=== PATIENT | female | born 1995 | race African-American/Black ===

== ENCOUNTER 2017-04-29 10:22 | Inpatient (IN) | payer OTHER ==
[2017-04-29] MEDS ORDERED: Promethazine HCl 25 MG/ML VIAL ONE ×2 (11:00→15:22)
[2017-04-29] MEDS ORDERED: Morphine 4 MG/ML Carpuject ONE ×2 (11:00→15:21)
[2017-04-29 11:23] LABS: Bilirubin Negative (Negative); Blood, Urine Small (Negative); Clarity CLEAR (Clear); Glucose, Urine (Dipstick) >=1000 mg/dL (Negative); Leukocyte Negative (Negative); Nitrite Negative (Negative); Protein, Urine (Dipstick) 30 mg/dL (Neg-Trace); Specific Gravity, Urine 1.027 (1.002-1.036); Urobilinogen 0.2 mg/dL (0.2-1.0)
[2017-04-29 11:24] LABS: Pregnancy Test - Urine (BHCG) Negative (Negative); Pregu Control Background? CLEAR/WHITE (CLR/WHITE); Pregu Control Bar Appear? YES (CONTROL BAR); Specific Gravity 1.027 (1.002-1.036)
[2017-04-29 11:28] LABS: Bacteria/HPF None Seen HPF (None Seen); Hyaline Casts/LPF 0-3 HYALINE CAST LPF (0-3 Hyaline); Squamous Epithelial None Seen HPF (0-3); WBC/HPF None Seen HPF (0-3)
--- NOTE | 2017-04-29 11:34 | RAD ---
CHEST 1 VIEW: HISTORY: Dyspnea. COMPARISON: 09/08/16. FINDINGS: Cardiac silhouette and pulmonary vasculature are unremarkable. Mediastinum is midline. There is no confluent airspace consolidation or evidence of pneumothorax. IMPRESSION: No active cardiopulmonary abnormalities are demonstrated. POS: [facility]
[2017-04-29 12:42] LABS: #Basophils 0.1 thou/uL (0.0-0.2); #Lymphocytes 2.2 thou/uL (1.20-3.40); #Monocytes 0.5 thou/uL (0.11-0.59); #Neutrophils 3.2 thou/uL (1.40-6.50); %Eosinophils 0.6 % (0.0-10.0); %Lymphocytes 36.9 % (21.0-51.0); %Monocytes 7.5 % (0.0-10.0); Hemoglobin 11.6 g/dL (12.0-16.0); Mean Corpuscular HGB CONC 31.7 g/dL (32.0-36.0); Mean Corpuscular Hemoglobin 26.6 pg (27.0-31.0); Mean Corpuscular Volume 83.9 fl (81.0-99.0); Mean Platelet Volume 10.9 fL (7.4-10.4); Platelet Count 195 thou/uL (130-400); RBC Distribution Width 12.6 % (11.5-14.5); Red Blood Cell (RBC) Count 4.37 mill/uL (4.20-5.40); White Blood Cell (WBC) Count 5.9 thou/uL (4.8-10.8)
[2017-04-29 12:48] LABS: Base Excess-Venous -6.8 mmol/L (-30.0-30.0); Bicarbonate (HCO3v) 18.1 mmol/L (1.0-85.0); CO2 Tension (PvCO2) 33.4 mmHg (41.0-51.0); Calcium, Ionized 1.07 mmol/L (1.12-1.32); Hemoglobin - Calc 12.5 g/dL (12.0-18.0); O2 Tension (PvO2) 67.9 mmHg (35.0-45.0); T. Carbon Dioxide 19.1 mmol/L (1.0-85.0); pH (Venous) 7.342 (7.35-7.45); vO2 Saturation-calc 92.4 % (0.0-100.0)
[2017-04-29 13:02] LABS: ALT (SGPT) 26 U/L (8-55); AST (SGOT) 17 U/L (5-34); Albumin 3.3 g/dL (3.5-5.0); Alkaline Phosphatase 94 U/L (40-150); Anion Gap 22 mmol/L (10-20); BUN (Urea Nitrogen) 23 mg/dL (7.0-18.7); Bilirubin, Total 0.4 mg/dL (0.2-1.2); Calc. Creatinine Clearance 0 mL/min (70-130); Calcium 9.8 mg/dL (7.8-10.44); Carbon Dioxide 17 mmol/L (22-29); Chloride 95 mmol/L (98-107); Estimated GFR-MDRD 82; Globulin 3.6 g/dL (2.4-3.5); Lipase 100 U/L (8-78); Phosphorus 5.2 mg/dL (2.3-4.7); Potassium 5.2 mmol/L (3.5-5.1); Protein, Total 6.9 g/dL (6.0-8.3); Sodium 129 mmol/L (136-145)
[2017-04-29 13:09] LABS: Glucose 634 mg/dL (70-105)
[2017-04-29] MEDS ORDERED: Insulin Regular 100 units/100 ml in NS IVPB SCH (14:00)
[2017-04-29] MEDS ORDERED: Insulin Regular 300 UNITS/3 ML VIAL ONE (14:01)
[2017-04-29] MEDS ORDERED: Dextrose 5 %-0.45 % NaCl 1,000 ML IV PRN (15:08)
[2017-04-29] MEDS ORDERED: Ondansetron ODT 4 MG TAB PO PRN (15:08)
[2017-04-29] MEDS ORDERED: Sodium Chloride 0.9% 1,000 ML IV PRN ×4 (15:08)
[2017-04-29] MEDS ORDERED: NS 0.9% w/ 20 MEQ KCL 1,000 ML IV PRN ×2 (15:08)
[2017-04-29] MEDS ORDERED: CCU Electrolyte Replacement 1 EACH IVPB ONE (15:08)
[2017-04-29] MEDS ORDERED: Ondansetron HCl/PF 4 MG/2 ML Vial IVP PRN (15:08)
[2017-04-29] MEDS ORDERED: Potassium Chloride 40 MEQ in Premix Bag 1 BAG IVPB PRN (15:24)
[2017-04-29] MEDS ORDERED: CCU ELECTROLYTE REPLACEMENT PROTOCOL FS PRN (15:24)
[2017-04-29] MEDS ORDERED: Potassium Chloride 40 MEQ in Sodium Chloride 0.9% 250 ML 250 ML IVPB PRN (15:24)
[2017-04-29] MEDS ORDERED: Magnesium 2 GM/NS 0.9% 100 ML 2 GM in Premix Bag 1 BAG IVPB PRN (15:24)
[2017-04-29] MEDS ORDERED: Potassium Phosphate 15 MMOL in Sodium Chloride 0.9% 250 ML 250 ML IV PRN (15:24)
[2017-04-29] MEDS ORDERED: Potassium Chloride 20 MEQ TAB PO PRN (15:24)
[2017-04-29] MEDS ORDERED: Potassium Phosphate 9 MMOL in Sodium Chloride 0.9% 100 ML IVPB PRN (15:24)
[2017-04-29] MEDS ORDERED: Magnesium Oxide 400 MG TAB PO PRN ×2 (15:24)
[2017-04-29] MEDS ORDERED: Potassium Phosphate 12 MMOL in Sodium Chloride 0.9% 250 ML 250 ML IV PRN (15:24)
[2017-04-29 16:12] LABS: Anion Gap 19 mmol/L (10-20); BUN (Urea Nitrogen) 21 mg/dL (7.0-18.7); Calc. Creatinine Clearance 0 mL/min (70-130); Calcium 8.9 mg/dL (7.8-10.44); Carbon Dioxide 17 mmol/L (22-29); Chloride 104 mmol/L (98-107); Estimated GFR-MDRD Greater than 90; Glucose 334 mg/dL (70-105); Potassium 4.2 mmol/L (3.5-5.1); Sodium 136 mmol/L (136-145)
[2017-04-29 18:31] VITALS: BMI 29.2
[2017-04-29 19:41] LABS: Anion Gap 12 mmol/L (10-20); BUN (Urea Nitrogen) 19 mg/dL (7.0-18.7); Calc. Creatinine Clearance 123 mL/min (70-130); Calcium 8.5 mg/dL (7.8-10.44); Carbon Dioxide 24 mmol/L (22-29); Chloride 104 mmol/L (98-107); Estimated GFR-MDRD Greater than 90; Glucose 289 mg/dL (70-105); Potassium 4.2 mmol/L (3.5-5.1); Sodium 136 mmol/L (136-145)
--- NOTE | 2017-04-29 20:26 | HP ---
CHIEF COMPLAINT: Abdominal pain. HISTORY OF PRESENT ILLNESS: This is a 21-year-old female patient with type 1 diabetes who presented here with abdominal pain. Denies diarrhea. Denies any sick contacts. On clinical evaluation in the ER, the patient noted to have severely elevated blood sugar with obvious diabetic ketoacidosis as ev idenced by low bicarb and high anion gap. As a result of this, the decision has been taken to admit this patient. Patient noted with a blood sugar of 634 on presentation. PAST MEDICAL HISTORY: Significant for type 1 diabetes, asthma and diabetic neuropathy. ALLERGIES: No known drug allergies. MEDICATIONS: Reviewed as documented on [employer]. SOCIAL HISTORY: Denies alcohol, tobacco or illicit drug use. FAMILY HISTORY: Significant for atrial fibrillation in the mother, otherwise none significantly rela alverto to presenting illness. REVIEW OF SYSTEMS: As documented in the body of the history. The other systems were reviewed and we re found not to be significantly related to presenting illness. LABORATORY INVESTIGATION: Significant for sodium of 129, potassium 5.2, bicarbonate of 17 with an an ion gap of 22, blood sugar 634. Urine showed presence of sugar protein and ketones. CBC unremarkabl e. PHYSICAL EXAMINATION: GENERAL: The patient is noted to be clinically dehydrated, otherwise hemodynamically stable. VITAL SIGNS: Somewhat tachycardic with a respiratory rate of 18. HEENT: Unremarkable with moist oral mucosa. CARDIOVASCULAR SYSTEM: First and second heart sounds were heard, tachycardic. RESPIRATORY SYSTEM: Clear to auscultation bilaterally. DIGESTIVE SYSTEM: Revealed a benign abdomen with positive bowel sounds. EXTREMITIES: No peripheral edema. SKIN: No new gross rash. LYMPHATICS: No peripheral lymphadenopathy. IMPRESSION: 1. Severe hyperglycemia in the context of problem #2. 2. Diabetic ketoacidosis. 3. Type 1 diabetes mellitus. 4. Asthma. PLAN: 1. The patient has been admitted to [facility]. 2. Insulin drip per diabetic ketoacidosis protocol. 3. Rehydration per protocol. 4. Counseling on the need to stay compliant with medications. 5. Further management will be dependent on the clinical course.
[2017-04-29] MEDS: Promethazine HCl 25 MG/ML VIAL SLOW IVP PRN (20:51)
[2017-04-29] MEDS ORDERED: Promethazine 25 MG TAB PO PRN (22:07)
[2017-04-29] MEDS: Morphine 2 MG/ML SYRINGE SLOW IVP PRN (22:24)
[2017-04-29] MEDS: D5 1/2 NS w/20 mEq KCL 1,000 ML IV PRN (22:30)
[2017-04-29 23:41] LABS: Anion Gap 14 mmol/L (10-20); BUN (Urea Nitrogen) 17 mg/dL (7.0-18.7); Calc. Creatinine Clearance 152 mL/min (70-130); Calcium 8.4 mg/dL (7.8-10.44); Carbon Dioxide 19 mmol/L (22-29); Chloride 110 mmol/L (98-107); Estimated GFR-MDRD Greater than 90; Glucose 131 mg/dL (70-105); Magnesium 1.8 mg/dL (1.6-2.6); Phosphorus 3.4 mg/dL (2.3-4.7); Potassium 4.2 mmol/L (3.5-5.1); Sodium 139 mmol/L (136-145)
[2017-04-30] MEDS: D5 1/2 NS w/20 mEq KCL 1,000 ML IV PRN ×2 (03:09→07:13)
[2017-04-30 04:44] LABS: Anion Gap 12 mmol/L (10-20); BUN (Urea Nitrogen) 14 mg/dL (7.0-18.7); Calc. Creatinine Clearance 156 mL/min (70-130); Calcium 7.8 mg/dL (7.8-10.44); Carbon Dioxide 20 mmol/L (22-29); Chloride 108 mmol/L (98-107); Estimated GFR-MDRD Greater than 90; Glucose 221 mg/dL (70-105); Lipase 116 U/L (8-78); Potassium 4.1 mmol/L (3.5-5.1); Sodium 136 mmol/L (136-145)
[2017-04-30] MEDS: Pregabalin 75 MG CAP PO SCH ×2 (08:23→20:18)
[2017-04-30] MEDS: Morphine 2 MG/ML SYRINGE SLOW IVP PRN ×2 (08:24→21:08)
[2017-04-30] MEDS: Promethazine HCl 25 MG/ML VIAL SLOW IVP PRN (10:17)
[2017-04-30] MEDS ORDERED: Insulin Regular 300 UNITS/3 ML VIAL SC PRN ×3 (11:59→15:09)
[2017-04-30] MEDS ORDERED: Dextrose 50% Abboject 50 ML SYRINGE SLOW IVP PRN (11:59)
[2017-04-30] MEDS ORDERED: Dextrose 5% in Water 1,000 ML IV PRN (11:59)
[2017-04-30] MEDS ORDERED: Senokot 8.6 MG TAB PO PRN (12:06)
[2017-04-30] MEDS ORDERED: Ondansetron HCl/PF 4 MG/2 ML Vial IVP PRN (12:06)
[2017-04-30] MEDS ORDERED: Calcium Carbonate 500 MG ChewTAB PO PRN (12:06)
[2017-04-30] MEDS ORDERED: INSULIN DETEMIR SC SCH (12:15)
[2017-04-30] MEDS ORDERED: Sodium Chloride 0.9% 1,000 ML IV SCH (12:15)
[2017-04-30] MEDS ORDERED: ADMIXTURE FEE SC SCH (12:15)
[2017-04-30] MEDS: Acetaminophen 325 MG TAB PO PRN (13:18)
[2017-04-30] MEDS ORDERED: cloNIDine 0.1 MG TAB PO PRN (15:09)
[2017-04-30] MEDS ORDERED: Morphine 2 MG/ML SYRINGE SLOW IVP PRN (15:47)
[2017-04-30] MEDS: Promethazine 25 MG TAB PO PRN (15:48)
[2017-04-30] MEDS ORDERED: Insulin Regular 300 UNITS/3 ML VIAL SC SCH (16:30)
[2017-04-30] MEDS ORDERED: Cyclobenzaprine 10 MG TAB PO PRN (16:39)
--- NOTE | 2017-04-30 17:38 | PDOC.PN ---
- Subjective Encounter Start Date: 04/30/17 Encounter Start Time: 11:00 Patient seen and examined. No new complaints. No overnight events. Nausea improving. - Objective MAR Reviewed: Yes Vital Signs & Weight: Vital Signs (12 hours) Temp Pulse Resp BP BP Pulse Ox 04/30/17 16:41 112 H 171/110 H 04/30/17 15:48 186/113 H 04/30/17 15:00 97.6 F 110 H 16 96 04/30/17 11:06 97.6 F 98 16 128/84 99 04/30/17 08:09 97.5 F L 90 17 95 04/30/17 07:00 97.5 F L 90 17 119/73 97 Weight Weight 176 lb I&O: 04/29/17 04/30/17 05/01/17 06:59 06:59 06:59 Intake Total 3410 252 Output Total 650 Balance 2760 252 Result Diagrams: 04/29/17 12:30 04/30/17 03:31 Additional Labs: Accuchecks 04/30/17 04/30/17 04/30/17 16:35 14:43 11:05 POC Glucose 469 H 436 H 123 H 04/30/17 04/30/17 04/30/17 10:14 09:04 08:02 POC Glucose 96 101 116 H 04/30/17 04/30/17 04/30/17 07:13 05:59 04:55 POC Glucose 114 H 142 H 200 H 04/30/17 04/30/17 04/30/17 04:10 03:06 02:12 POC Glucose 218 H 241 H 304 H 04/30/17 04/30/17 04/29/17 01:12 00:15 23:00 POC Glucose 300 H 228 H 138 H 04/29/17 04/29/17 04/29/17 22:05 20:59 20:13 POC Glucose 96 148 H 203 H 04/29/17 04/29/17 19:04 18:14 POC Glucose 294 H 355 H EKG Reviewed by me: Yes (Tele SR) Phys Exam - Physical Examination Constitutional: NAD HEENT: moist MMs Neck: no JVD Respiratory: no wheezing, no rales, no rhonchi, clear to auscultation bilateral Cardiovascular: RRR, no rub no heaves/pulsations Gastrointestinal: soft, non-tender, no distention, positive bowel sounds Musculoskeletal: no edema Neurological: non-focal, normal sensation, moves all 4 limbs Psychiatric: normal affect, A&O x 3 Dx/Plan - Plan DVT proph w/lovenox, DVT proph w/SCDs IMPRESSION: 1. DKA - cause ??? No infectious etio identified 2. HTN 3. Mild Int Asthma 4. Hyponatremia/Hyperkalemia/Met acidosis - resolved 5. Diabetic neuropathy/ DM1 PLAN: * Change Insulin drip to Aggressive sliding scale with Levemir 30 units BID * Levemir 20 units x 1 * ACHS and 0200 sugar check * Cont gentle IVF * Transfer to Medical * DC Electrolyte protocol * AM labs * Conselled on DM1 * Elevated Lipase prob due to DKA * Add Amlodipine Laboratory Tests 04/30/17 04/30/17 03:31 03:31 Lipase 116 H B-Hydroxybutyrate 0.07 Review of Systems - Review of Systems Respiratory: negative: Cough, Dry, Shortness of Breath, Hemoptysis, SOB with Excertion, Pleuritic Pain, Sputum, Wheezing Cardiovascular: negative: chest pain, palpitations, orthopnea, paroxysmal nocturnal dyspnea, edema, light headedness - Medications/Allergies Allergies/Adverse Reactions: Allergies Allergy/AdvReac Type Severity Reaction Status Date / Time lisinopril Allergy Severe Swollen Verified 09/09/16 03:48 Lips metoclopramide [From Reglan] Allergy Severe Short of Verified 09/09/16 03:48 Breath ketorolac [From Toradol] Allergy Verified 04/29/17 18:29 Medications: Current Medications Acetaminophen (Tylenol) 650 mg PO Q4H PRN PRN Reason: Headache/Fever or Pain Last Admin: 04/30/17 13:18 Dose: 650 mg Calcium Carbonate (Tums) 1,000 mg PO Q4H PRN PRN Reason: Heartburn or Indigestion Clonidine (Catapres) 0.1 mg PO Q4H PRN PRN Reason: Systolic BP > 180 Last Admin: 04/30/17 15:48 Dose: 0.1 mg Cyclobenzaprine HCl (Flexeril) 5 mg PO TID PRN PRN Reason: Muscle Spasm Stop: 05/02/17 16:40 Dextrose/Water (Dextrose 50%) 25 gm SLOW IVP PRN PRN PRN Reason: Hypoglycemia Glucagon (Glucagon) 1 mg IM PRN PRN PRN Reason: Hypoglycemia Dextrose/Water (D5w) 1,000 mls @ 0 mls/hr IV .Q0M PRN; As Directed PRN Reason: Hypoglycemia Insulin Detemir 30 units/ (Miscellaneous Medication) 0.3 mls @ 0 mls/hr SC BID [facility] Insulin Human Regular (Humulin R) 5 units SC 0730 [facility] Insulin Human Regular (Humulin R) 5 units SC 1130 [facility] Insulin Human Regular (Humulin R) 5 units SC 1630 [facility] Last Admin: 04/30/17 15:50 Dose: 5 unit Insulin Human Regular (Humulin R) 0 units SC .BEDTIME SLIDING SC PRN PRN Reason: Bedtime Correctional Scale Insulin Human Regular (Humulin R) 0 units SC .AGGRESSIVE SLIDING PRN PRN Reason: Aggressive Sliding Scale Last Admin: 04/30/17 15:50 Dose: 13 unit Morphine Sulfate (Morphine) 2 mg SLOW IVP Q8H PRN PRN Reason: Severe Pain (7-10) Stop: 05/01/17 15:25 Last Admin: 04/30/17 15:52 Dose: 2 mg Ondansetron HCl (Zofran) 4 mg IVP Q6H PRN PRN Reason: Nausea/Vomiting Pantoprazole Sodium (Protonix) 40 mg PO DAILY [facility] Last Admin: 04/30/17 08:24 Dose: 40 mg Pregabalin (Lyrica) 300 mg PO BID [facility] Last Admin: 04/30/17 08:23 Dose: 300 mg Promethazine HCl (Phenergan) 25 mg PO Q4H PRN PRN Reason: Nausea Last Admin: 04/30/17 15:48 Dose: 25 mg Senna (Senokot) 2 tab PO HSPRN PRN PRN Reason: Constipation
[2017-04-30] MEDS: ADMIXTURE FEE SC SCH (20:20)
[2017-04-30] MEDS: INSULIN DETEMIR SC SCH (20:20)
[2017-04-30 23:56] LABS: Troponin I Less than 0.010 ng/mL (< 0.028)
[2017-05-01] MEDS: Morphine 2 MG/ML SYRINGE SLOW IVP PRN ×3 (02:02→13:22)
[2017-05-01 02:41] LABS: Anion Gap 13 mmol/L (10-20); BUN (Urea Nitrogen) 13 mg/dL (7.0-18.7); Calc. Creatinine Clearance 173 mL/min (70-130); Calcium 8.1 mg/dL (7.8-10.44); Carbon Dioxide 22 mmol/L (22-29); Chloride 108 mmol/L (98-107); Estimated GFR-MDRD Greater than 90; Glucose 89 mg/dL (70-105); Phosphorus 3.6 mg/dL (2.3-4.7); Potassium 3.8 mmol/L (3.5-5.1); Sodium 139 mmol/L (136-145)
[2017-05-01 03:39] LABS: Troponin I Less than 0.010 ng/mL (< 0.028)
[2017-05-01] MEDS ORDERED: Insulin Regular 300 UNITS/3 ML VIAL SC SCH ×2 (07:30→11:30)
[2017-05-01] MEDS: INSULIN DETEMIR SC SCH (08:53)
[2017-05-01] MEDS: ADMIXTURE FEE SC SCH (08:53)
[2017-05-01] MEDS: Promethazine 25 MG TAB PO PRN ×2 (08:57→13:24)
[2017-05-01] MEDS ORDERED: Sodium Chloride 0.9% 10 ML ONE (09:04)
[2017-05-01] MEDS: Pregabalin 75 MG CAP PO SCH (10:05)
[2017-05-01 12:26] VITALS: TEMP 98
[2017-05-01] MEDS ORDERED: cloNIDine 0.1 MG TAB PO SCH (12:30)
[2017-05-01] MEDS: Acetaminophen 325 MG TAB PO PRN (13:24)
[2017-05-01 16:04] VITALS: BP 143/86
--- NOTE | 2017-05-01 17:20 | DIS ---
DATE OF DISCHARGE: 05/01/2017 DISCHARGE DISPOSITION: Home. FOLLOWUP: Follow up with primary care physician, Dr. Martin in 1 week. The patient was seen and examined on the day of discharge. Denies any new complaints. No chest pain , shortness of breath or palpitations reported. Blood sugars today was 156, 169, and 167. ALLERGIES: Patient is allergic to LISINOPRIL, REGLAN, and TORADOL. DISCHARGE MEDICATIONS: Same as admission medications with the addition of clonidine as needed for sy stolic blood pressure more than 180. She was advised to continue Levemir 30 units b.i.d. with 15 uni ts of Humalog 3 times a day, Protonix 40 mg daily, Lyrica 300 mg b.i.d., Phenergan as needed. INPATIENT CONSULTANTS: None. BRIEF HOSPITAL COURSE: The patient is a 21-year-old female with diabetes mellitus type 1, presented to the hospital with abdominal pain. Blood sugar was 634 on ER presentation. Please refer to the hi story and physical dated 04/29/[address] Sena for further details. The patient was admitted to the intermediate care unit with a diagnosis of diabetic ketoacidosis. He r anion gap on admission was 22 with ketones of 6.17, sodium of 129, and potassium 5.2. Her bicarbon ate on admission was 17. She was placed on insulin drip diabetic ketoacidosis protocol. Next day, i nsulin drip was transitioned to subcutaneous insulin with aggressive sliding scale. Electrolytes hav e completely resolved. Her blood sugars have been stable over the last 12 hours. Exact precipitant factor for DKA appears to be unclear. Probable medication noncompliance. She also was found to have elevated blood pressure intermittently, probably anxiety induced. Blood pressure this morning was 1 24/79 and 121/79 last night. For this reason, she was not started on antihypertensives. A prescript ion for clonidine was provided for systolic blood pressure more than 180. She was extensively counse led on diabetes mellitus type 1 as well as hypertension. She is able to tolerate oral diet. She mariah ears stable for discharge. FINAL DIAGNOSES: 1. Diabetic ketoacidosis, resolved. 2. History of diabetes mellitus type 1. 3. Hypertension, diet controlled. 4. Mild intermittent asthma. 5. Hyponatremia. 6. Hyperkalemia. 7. Metabolic acidosis. 8. Diabetic neuropathy. Plan of care was discussed with the patient in detail. She stated understanding. Total time coordinating the discharge of this patient was 37 minutes.
--- NOTE | 2017-05-01 23:42 | EKG ---
Test Reason : Blood Pressure : / mmHG Vent. Rate : 099 BPM Atrial Rate : 099 BPM P-R Int : 118 ms QRS Dur : 072 ms QT Int : 348 ms P-R-T Axes : 052 058 028 degrees QTc Int : 446 ms Normal sinus rhythm Normal ECG When compared with ECG of 29-APR-2017 10:37, (Unconfirmed) No significant change was found Confirmed by Domingo ROSARIO ([id number]) on 05/01/2017 11:41:46 PM Referred By: NHUNG Confirmed By:Domingo ROSARIO
--- NOTE | 2017-05-05 18:41 | EKG ---
Test Reason : Blood Pressure : / mmHG Vent. Rate : 115 BPM Atrial Rate : 115 BPM P-R Int : 132 ms QRS Dur : 078 ms QT Int : 334 ms P-R-T Axes : 070 048 042 degrees QTc Int : 462 ms Sinus tachycardia Possible Left atrial enlargement Borderline ECG Confirmed by HAWA ARELLANO MD ([id number]), industrial editor WALTER COPELAND ([id number] on 05/05/2017 6:40:30 PM Referred By: Confirmed By:HAWA ARELLANO MD
== END 2017-05-01 16:46 | disposition home or self-care (01) | DRG 638 ==
LOC: ERS 10:22 → IMCU/EMU 15:37 → ONC 04-30 14:12
PROVIDERS: ADMIT Internal Medicine Nephrology; ATTEND Internal Medicine Nephrology
DX: E10.10 Type 1 diabetes mellitus with ketoacidosis without coma (principal); E87.1 Hypo-osmolality and hyponatremia; E10.42 Type 1 diabetes mellitus with diabetic polyneuropathy; E87.5 Hyperkalemia; E86.0 Dehydration; Z88.8 Allergy status to other drugs, medicaments and biological substances; Z79.4 Long term (current) use of insulin; I10 Essential (primary) hypertension; J45.20 Mild intermittent asthma, uncomplicated
CPT/HCPCS: 36415; 36416; 71045; 80048; 80053; 81003; 81015; 81025; 82010; 82330; 82803; 83690; 83735; 84100; 84484; 85025; 93005; 93010; 96361; 96365; 96366; 96375; 96376; A4216; J1815; J2270; J2550; J7050

== ENCOUNTER 2017-07-13 19:49 | Emergency (ER) | payer OTHER ==
[2017-07-13 20:27] LABS: #Basophils 0.1 thou/uL (0.0-0.2); #Eosinphils 0.2 thou/uL (0.0-0.7); #Lymphocytes 2.1 thou/uL (1.20-3.40); #Monocytes 0.5 thou/uL (0.11-0.59); #Neutrophils 2.3 thou/uL (1.40-6.50); %Basophils 1.1 % (0.0-1.0); %Eosinophils 3.6 % (0.0-10.0); %Lymphocytes 41.5 % (21.0-51.0); %Monocytes 9.3 % (0.0-10.0); %Neutrophils 44.6 % (42.0-75.0); Hemoglobin 11.9 g/dL (12.0-16.0); Mean Corpuscular HGB CONC 33.7 g/dL (32.0-36.0); Mean Corpuscular Hemoglobin 27.9 pg (27.0-31.0); Mean Corpuscular Volume 82.9 fl (81.0-99.0); Mean Platelet Volume 10.4 fL (7.4-10.4); Platelet Count 168 thou/uL (130-400); RBC Distribution Width 13.2 % (11.5-14.5); Red Blood Cell (RBC) Count 4.26 mill/uL (4.20-5.40); White Blood Cell (WBC) Count 5.2 thou/uL (4.8-10.8)
[2017-07-13 20:49] LABS: ALT (SGPT) 24 U/L (8-55); AST (SGOT) 15 U/L (5-34); Albumin 3.1 g/dL (3.5-5.0); Alkaline Phosphatase 109 U/L (40-150); Anion Gap 14 mmol/L (10-20); BUN (Urea Nitrogen) 19 mg/dL (7.0-18.7); Bilirubin, Total 0.2 mg/dL (0.2-1.2); Calc. Creatinine Clearance 0 mL/min (70-130); Calcium 8.6 mg/dL (7.8-10.44); Carbon Dioxide 23 mmol/L (22-29); Chloride 101 mmol/L (98-107); Estimated GFR-MDRD 76; Globulin 3.5 g/dL (2.4-3.5); Glucose 399 mg/dL (70-105); Potassium 4.9 mmol/L (3.5-5.1); Protein, Total 6.6 g/dL (6.0-8.3); Sodium 133 mmol/L (136-145)
[2017-07-13 21:06] LABS: BHCG - Serum Negative (NEGATIVE); Pregs Control Background? CLEAR/WHITE (CLR/WHITE); Pregs Control Bar Appear? YES (CONTROL BAR)
--- NOTE | 2017-07-13 21:09 | RAD ---
PORTABLE AP CHEST X-RAY 07/13/17 HISTORY: Chest pain, swelling. COMPARISON: 04/29/17. FINDINGS: The cardiac silhouette and pulmonary vasculature are within normal limits. The lungs remain clear. Th ere has been no interval change from prior study. IMPRESSION: No acute cardiopulmonary process. POS: [facility]
[2017-07-13] MEDS ORDERED: Ondansetron ODT 8 MG TAB ONE (21:14)
[2017-07-13 21:19] LABS: CKMB 2.3 ng/mL (0-6.6); Troponin I Less than 0.010 ng/mL (< 0.028)
[2017-07-13] MEDS ORDERED: Furosemide 40 MG/4 ML VIAL ONE (22:16)
[2017-07-13] MEDS ORDERED: Promethazine HCl 25 MG/ML VIAL ONE (22:16)
[2017-07-13] MEDS ORDERED: Morphine 4 MG/ML VIAL ONE (22:16)
== END 2017-07-13 23:48 | disposition home or self-care (01) ==
LOC: ERS 19:49
DX: R60.0 Localized edema (principal); E10.40 Type 1 diabetes mellitus with diabetic neuropathy, unspecified; I10 Essential (primary) hypertension; J45.909 Unspecified asthma, uncomplicated
CPT/HCPCS: 36415; 36416; 71045; 80053; 82010; 82553; 83880; 84484; 84703; 85025; 93005; 94760; 96372; 96374; 96375; J1940; J2270; J2550

== ENCOUNTER 2017-12-05 18:28 | Emergency (ER) | payer OTHER ==
[2017-12-05 19:27] LABS: #Basophils 0.1 thou/uL (0.0-0.2); #Eosinphils 0.1 thou/uL (0.0-0.7); #Lymphocytes 2.4 thou/uL (1.20-3.40); #Monocytes 0.8 thou/uL (0.11-0.59); #Neutrophils 6.7 thou/uL (1.40-6.50); %Basophils 0.6 % (0.0-1.0); %Eosinophils 1.1 % (0.0-10.0); %Lymphocytes 23.9 % (21.0-51.0); %Monocytes 8.1 % (0.0-10.0); %Neutrophils 66.3 % (42.0-75.0); Hemoglobin 8.3 g/dL (12.0-16.0); Mean Corpuscular HGB CONC 33.4 g/dL (32.0-36.0); Mean Corpuscular Hemoglobin 27.8 pg (27.0-31.0); Mean Corpuscular Volume 83.3 fL (78.0-98.0); Mean Platelet Volume 9.6 fL (7.4-10.4); Platelet Count 286 thou/uL (130-400); Red Blood Cell (RBC) Count 2.98 mill/uL (4.20-5.40); White Blood Cell (WBC) Count 10.1 thou/uL (4.8-10.8)
[2017-12-05 19:49] LABS: ALT (SGPT) 12 U/L (8-55); AST (SGOT) 20 U/L (5-34); Albumin 2.9 g/dL (3.5-5.0); Alkaline Phosphatase 142 U/L (40-150); Anion Gap 16 mmol/L (10-20); BUN (Urea Nitrogen) 18 mg/dL (7.0-18.7); Bilirubin, Total 0.4 mg/dL (0.2-1.2); Calc. Creatinine Clearance 0 mL/min (70-130); Calcium 8.4 mg/dL (7.8-10.44); Carbon Dioxide 27 mmol/L (22-29); Chloride 96 mmol/L (98-107); Estimated GFR-MDRD 29; Globulin 4.2 g/dL (2.4-3.5); Glucose 301 mg/dL (70-105); Lipase 54 U/L (8-78); Potassium 3.9 mmol/L (3.5-5.1); Protein, Total 7.1 g/dL (6.0-8.3); Sodium 135 mmol/L (136-145)
[2017-12-05 19:55] LABS: BHCG - Serum Negative (NEGATIVE); Pregs Control Background? CLEAR/WHITE (CLR/WHITE); Pregs Control Bar Appear? YES (CONTROL BAR)
[2017-12-05] MEDS ORDERED: Morphine 4 MG/ML VIAL ONE (22:15)
[2017-12-05] MEDS ORDERED: Ondansetron HCl/PF 4 MG/2 ML Vial ONE (22:16)
--- NOTE | 2017-12-05 22:50 | CT ---
CT ABDOMEN AND PELVIS WITH IV CONTRAST 12/05/17 HISTORY: Left flank pain. FINDINGS: Lung bases are clear. Surrounding left kidney has a very large heterogeneous well encapsulated shell having the appearance of a perinephric hematoma. It measures up to 15.2 cm in length x 5.0 cm depth. There is effacement of the lateral renal cortex. A thin linear metallic density is present within the inferior pole cortex of the left kidney, likely related to recent biopsy. Urinary bladder is unremarkable. IMPRESSION: Large left subcapsular renal hematoma. POS: [facility]
[2017-12-05] MEDS ORDERED: Promethazine HCl 25 MG/ML VIAL ONE (23:26)
[2017-12-05] MEDS ORDERED: HYDROmorphone 0.5 MG/0.5 ML SYRINGE ONE (23:55)
[2017-12-06] MEDS ORDERED: Insulin Regular 300 UNITS/3 ML VIAL ONE (01:59)
== END 2017-12-06 02:18 | disposition home or self-care (01) ==
LOC: ERS 18:28
DX: M79.81 Nontraumatic hematoma of soft tissue (principal); R11.2 Nausea with vomiting, unspecified; E10.40 Type 1 diabetes mellitus with diabetic neuropathy, unspecified; J45.909 Unspecified asthma, uncomplicated; Z79.899 Other long term (current) drug therapy
CPT/HCPCS: 36415; 36416; 74177; 80053; 83690; 84703; 85025; 94760; 96365; 96366; 96375; J1170; J1815; J2270; J2405; J2550

== ENCOUNTER 2018-12-08 01:17 | Emergency (ER) | payer OTHER ==
[2018-12-08] MEDS ORDERED: Acetaminophen 325 MG TAB ONE ×2 (03:24→03:26)
[2018-12-08 03:27] LABS: Mean Corpuscular Volume 88.9 fL (78.0-98.0)
[2018-12-08 03:28] LABS: Hemoglobin 9.5 g/dL (12.0-16.0); Mean Corpuscular HGB CONC 33.6 g/dL (32.0-36.0); Mean Corpuscular Hemoglobin 29.9 pg (27.0-31.0); RBC Distribution Width 14.5 % (11.5-14.5); Red Blood Cell (RBC) Count 3.18 mill/uL (4.20-5.40); White Blood Cell (WBC) Count 6.1 thou/uL (4.8-10.8)
[2018-12-08 03:42] LABS: #Eosinphils 0.2 thou/uL (0.0-0.7); #Lymphocytes 1.7 thou/uL (1.20-3.40); #Monocytes 0.7 thou/uL (0.11-0.59); #Neutrophils 3.6 thou/uL (1.40-6.50); %Basophils 0.8 % (0.0-1.0); %Eosinophils 2.7 % (0.0-10.0); %Lymphocytes 27.6 % (21.0-51.0); %Monocytes 10.9 % (0.0-10.0); %Neutrophils 58.1 % (42.0-75.0); Large Platelets SLIGHT; MDiff Complete? YES; Mean Platelet Volume 13.7 fL (7.4-10.4); Platelet Count 112 thou/uL (130-400); Platelet Morphology Comment Appears Adequate
[2018-12-08 03:46] LABS: ALT (SGPT) 28 U/L (8-55); AST (SGOT) 25 U/L (5-34); Albumin 3.4 g/dL (3.5-5.0); Alkaline Phosphatase 251 U/L (40-150); Anion Gap 22 mmol/L (10-20); BUN (Urea Nitrogen) 40 mg/dL (7.0-18.7); Bilirubin, Total 0.2 mg/dL (0.2-1.2); Calc. Creatinine Clearance 0 mL/min (70-130); Calcium 7.9 mg/dL (7.8-10.44); Carbon Dioxide 19 mmol/L (22-29); Chloride 102 mmol/L (98-107); Estimated GFR-MDRD 14; Globulin 2.9 g/dL (2.4-3.5); Glucose 362 mg/dL (70-105); Potassium 5.3 mmol/L (3.5-5.1); Protein, Total 6.3 g/dL (6.0-8.3); Sodium 138 mmol/L (136-145)
[2018-12-08] MEDS ORDERED: Ondansetron ODT 4 MG TAB ONE (04:27)
--- NOTE | 2018-12-08 08:37 | RAD ---
EXAM: Chest one view: HISTORY: Code difficulty breathing, patient cyst fluid and lung dialysis on Sunday COMPARISON: 07/13/2017 FINDINGS: Right-sided dual-lumen venous access catheter. Heart size: Borderline enlarged. Lungs: Clear of acute process. No evidence for pneumonia, pleural effusion, acute edema, or pneumothorax, or other significant acute process. IMPRESSION: No significant acute intrathoracic disease.
== END 2018-12-08 04:28 | disposition home or self-care (01) ==
LOC: ERS 01:17
DX: R07.89 Other chest pain (principal); R06.02 Shortness of breath; E10.65 Type 1 diabetes mellitus with hyperglycemia; E10.40 Type 1 diabetes mellitus with diabetic neuropathy, unspecified; E10.22 Type 1 diabetes mellitus with diabetic chronic kidney disease; I11.0 Hypertensive heart disease with heart failure; N18.6 End stage renal disease; Z99.2 Dependence on renal dialysis; Z79.4 Long term (current) use of insulin; Z79.899 Other long term (current) drug therapy
CPT/HCPCS: 36415; 71045; 80053; 84484; 85025; 93005; Q0162

== ENCOUNTER 2018-12-08 08:23 | Emergency (ER) | payer OTHER ==
--- NOTE | 2018-12-08 09:31 | RAD ---
EXAM: Chest PA and lateral: HISTORY: High blood sugar, nausea, difficulty breathing COMPARISON: 12/08/2018 FINDINGS: Heart size:Minimal with stable cardiomegaly. Lungs:Clear of acute process. No confluent pneumonia, overt edema, pleural effusion, or other acute process. IMPRESSION: No significant acute intrathoracic disease.
[2018-12-08] MEDS ORDERED: Promethazine HCl 25 MG/ML VIAL ONE ×2 (09:44→09:46)
[2018-12-08 10:14] LABS: BHCG - Serum Negative (NEGATIVE); Pregs Control Background? CLEAR/WHITE (CLR/WHITE); Pregs Control Bar Appear? YES (CONTROL BAR)
[2018-12-08 10:23] LABS: ALT (SGPT) 33 U/L (8-55); AST (SGOT) 31 U/L (5-34); Albumin 3.5 g/dL (3.5-5.0); Alkaline Phosphatase 256 U/L (40-150); Anion Gap 13 mmol/L (10-20); BUN (Urea Nitrogen) 41 mg/dL (7.0-18.7); Bilirubin, Total 0.3 mg/dL (0.2-1.2); Calc. Creatinine Clearance 0 mL/min (70-130); Calcium 8.5 mg/dL (7.8-10.44); Carbon Dioxide 28 mmol/L (22-29); Chloride 102 mmol/L (98-107); Estimated GFR-MDRD 14; Globulin 3.5 g/dL (2.4-3.5); Glucose 185 mg/dL (70-105); Potassium 5.1 mmol/L (3.5-5.1); Sodium 138 mmol/L (136-145)
[2018-12-08 10:47] LABS: #Basophils 0.1 thou/uL (0.0-0.2); #Eosinphils 0.1 thou/uL (0.0-0.7); #Lymphocytes 1.9 thou/uL (1.20-3.40); #Monocytes 0.6 thou/uL (0.11-0.59); #Neutrophils 3.9 thou/uL (1.40-6.50); %Basophils 0.8 % (0.0-1.0); %Eosinophils 2.1 % (0.0-10.0); %Lymphocytes 28.5 % (21.0-51.0); %Monocytes 9.5 % (0.0-10.0); %Neutrophils 59.2 % (42.0-75.0); Hemoglobin 9.9 g/dL (12.0-16.0); Mean Corpuscular HGB CONC 32.7 g/dL (32.0-36.0); Mean Corpuscular Hemoglobin 29.4 pg (27.0-31.0); Mean Platelet Volume 13.7 fL (7.4-10.4); Platelet Count 137 thou/uL (130-400); RBC Distribution Width 14.6 % (11.5-14.5); Red Blood Cell (RBC) Count 3.36 mill/uL (4.20-5.40); White Blood Cell (WBC) Count 6.6 thou/uL (4.8-10.8)
== END 2018-12-08 12:11 | disposition home or self-care (01) ==
LOC: ERS 08:23
DX: R07.9 Chest pain, unspecified (principal); I12.9 Hypertensive chronic kidney disease with stage 1 through stage 4 chronic kidney disease, or unspecified chronic kidney disease; N18.9 Chronic kidney disease, unspecified; E10.22 Type 1 diabetes mellitus with diabetic chronic kidney disease; J45.909 Unspecified asthma, uncomplicated; Z79.4 Long term (current) use of insulin; Z79.899 Other long term (current) drug therapy
CPT/HCPCS: 36415; 36416; 71045; 71046; 80053; 84484; 84703; 85025; 93005; 94760; 96365; J2550; Q0162

== ENCOUNTER 2021-10-02 20:06 | Observation (INO) | payer MEDICAID, OTHER ==
[2021-10-02] MEDS ORDERED: HYDROcodone/Acetaminophen 5/325 mg Tablet ONE (21:23)
[2021-10-02] MEDS ORDERED: hydrOXYzine 25 MG TAB ONE (21:24)
[2021-10-02] MEDS ORDERED: traMADol HCl 50 MG TAB ONE (21:28)
[2021-10-02] MEDS ORDERED: diphenhydrAMINE 25 MG CAP ONE (21:32)
[2021-10-02] MEDS ORDERED: Ondansetron ODT 4 MG TAB ONE (21:50)
[2021-10-02] MEDS ORDERED: Acetaminophen/Codeine 30-300mg Tablet ONE (21:50)
[2021-10-02 21:51] LABS: #Basophils 0.1 thou/uL (0.0-0.2); #Eosinphils 0.1 thou/uL (0.0-0.7); #Lymphocytes 1.7 thou/uL (1.20-3.40); #Monocytes 0.6 thou/uL (0.11-0.59); #Neutrophils 3.5 thou/uL (1.40-6.50); %Basophils 1.1 % (0.0-1.0); %Eosinophils 1.8 % (0.0-10.0); %Lymphocytes 28.9 % (21.0-51.0); %Monocytes 10.6 % (0.0-10.0); %Neutrophils 57.7 % (42.0-75.0); Hemoglobin 9.1 g/dL (12.0-16.0); Mean Corpuscular HGB CONC 32.5 g/dL (32.0-36.0); Mean Corpuscular Hemoglobin 32.6 pg (27.0-31.0); Mean Platelet Volume 10.5 fL (7.4-10.4); Platelet Count 97 thou/uL (130-400); RBC Distribution Width 15.9 % (11.5-14.5); Red Blood Cell (RBC) Count 2.77 mill/uL (4.20-5.40)
[2021-10-02 22:11] LABS: ALT (SGPT) 15 U/L (8-55); AST (SGOT) 22 U/L (5-34); Albumin 3.5 g/dL (3.5-5.0); Alkaline Phosphatase 82 U/L (40-110); Anion Gap 22 mmol/L (10-20); BUN (Urea Nitrogen) 45 mg/dL (7.0-18.7); Bilirubin, Total 0.3 mg/dL (0.2-1.2); Calc. Creatinine Clearance 0 mL/min (70-130); Calcium 7.2 mg/dL (7.8-10.44); Carbon Dioxide 21 mmol/L (22-29); Chloride 95 mmol/L (98-107); Globulin 3.4 g/dL (2.4-3.5); Glucose 519 mg/dL (70-105); Magnesium 2.1 mg/dL (1.6-2.6); Potassium 6.4 mmol/L (3.5-5.1); Protein, Total 6.9 g/dL (6.0-8.3); Sodium 132 mmol/L (136-145)
[2021-10-02] MEDS ORDERED: Bisacodyl 10 MG SUPP PR PRN (23:13)
[2021-10-02] MEDS ORDERED: Dextrose 50% Abboject 50 ML SYRINGE SLOW IVP PRN (23:13)
[2021-10-02] MEDS ORDERED: Dextrose 5% in Water 1,000 ML IV PRN (23:13)
[2021-10-02] MEDS ORDERED: HYDROcodone/Acetaminophen 5/325 mg Tablet PO PRN (23:13)
[2021-10-02] MEDS ORDERED: Ondansetron PF 4 MG/2 ML Vial IVP PRN (23:13)
[2021-10-02] MEDS ORDERED: Acetaminophen 325 MG TAB PO PRN (23:13)
[2021-10-02] MEDS ORDERED: Zolpidem Tartrate 5 MG TAB PO PRN (23:13)
[2021-10-02] MEDS ORDERED: HumaLOG 300 UNITS/3 ML VIAL SC PRN ×2 (23:13)
[2021-10-02] MEDS ORDERED: Dextrose 50% Abboject 50 ML SYRINGE SLOW IVP SCH (23:15)
[2021-10-02] MEDS ORDERED: hydrALAZINE 20 MG/ML VIAL SLOW IVP PRN (23:15)
[2021-10-02] MEDS ORDERED: Sodium Bicarb 50 MEQ/50 ML VIAL IVP SCH (23:15)
[2021-10-02] MEDS ORDERED: Insulin Regular 300 UNITS/3 ML VIAL IVP SCH (23:15)
[2021-10-02] MEDS ORDERED: Heparin 5,000 UNITS/ML VIAL SC SCH (23:30)
[2021-10-02] MEDS ORDERED: diphenhydrAMINE 50 MG/ML VIAL IVP PRN (23:30)
[2021-10-02] MEDS ORDERED: Lantus 1000 UNITS/10 ML VIAL SC SCH (23:45)
[2021-10-03] MEDS ORDERED: diphenhydrAMINE 50 MG/ML VIAL ONE ×2 (00:49→05:33)
[2021-10-03 01:01] LABS: HBSAB Concentration Less than 8.00 mIU/mL; HBSAg Index 0.19 S/CO (0-0.99); Hep B Core Total Ab Non-Reactive (NonReactive); Hep B Core Total Index 0.11 S/CO (0-0.79); Hep B Surf AB Non-Reactive (NonReactive); Hep B Surf Ag Non-Reactive S/CO (NonReactive); Hep C IgG Ab Non-Reactive (NonReactive); Hep C Index 0.08 S/CO (0-0.79)
[2021-10-03 01:23] LABS: Troponin I Less than 0.010 ng/mL (< 0.028)
[2021-10-03 07:08] LABS: #Basophils 0.1 thou/uL (0.0-0.2); #Eosinphils 0.1 thou/uL (0.0-0.7); #Lymphocytes 1.5 thou/uL (1.20-3.40); #Monocytes 0.5 thou/uL (0.11-0.59); #Neutrophils 2.7 thou/uL (1.40-6.50); %Basophils 1.2 % (0.0-1.0); %Lymphocytes 30.4 % (21.0-51.0); %Monocytes 10.9 % (0.0-10.0); %Neutrophils 55.6 % (42.0-75.0); Hemoglobin 9.4 g/dL (12.0-16.0); Mean Corpuscular HGB CONC 32.2 g/dL (32.0-36.0); Mean Corpuscular Hemoglobin 32.6 pg (27.0-31.0); Mean Platelet Volume 13.3 fL (7.4-10.4); Platelet Count 101 thou/uL (130-400); RBC Distribution Width 15.8 % (11.5-14.5); Red Blood Cell (RBC) Count 2.89 mill/uL (4.20-5.40); White Blood Cell (WBC) Count 4.9 thou/uL (4.8-10.8)
[2021-10-03 07:17] LABS: ALT (SGPT) 17 U/L (8-55); AST (SGOT) 19 U/L (5-34); Albumin 3.5 g/dL (3.5-5.0); Alkaline Phosphatase 92 U/L (40-110); Anion Gap 19 mmol/L (10-20); BUN (Urea Nitrogen) 22 mg/dL (7.0-18.7); Bilirubin, Total 0.5 mg/dL (0.2-1.2); Calc. Creatinine Clearance 0 mL/min (70-130); Calcium 7.8 mg/dL (7.8-10.44); Carbon Dioxide 24 mmol/L (22-29); Chloride 96 mmol/L (98-107); Globulin 3.1 g/dL (2.4-3.5); Glucose 453 mg/dL (70-105); Potassium 4.2 mmol/L (3.5-5.1); Protein, Total 6.6 g/dL (6.0-8.3); Sodium 135 mmol/L (136-145)
[2021-10-03 07:20] LABS: Troponin I 0.011 ng/mL (< 0.028)
[2021-10-03 08:31] VITALS: BMI 33.5
[2021-10-03] MEDS ORDERED: Lantus 1000 UNITS/10 ML VIAL SC SCH (09:00)
[2021-10-03] MEDS ORDERED: Insulin Glargine 30 UNITS/0.3 ML VIAL SC SCH (10:15)
[2021-10-03] MEDS: Heparin 5,000 UNITS/ML VIAL SC SCH ×2 (10:28→21:28)
[2021-10-03] MEDS ORDERED: Dextrose 5% in Water 1,000 ML IV PRN (10:52)
[2021-10-03 11:56] LABS: Glucose 590 mg/dL (70-105)
[2021-10-03] MEDS: cloNIDine 0.1 MG TAB PO PRN (11:59)
[2021-10-03] MEDS ORDERED: Pregabalin 75 MG CAP PO SCH (12:00)
[2021-10-03] MEDS: Morphine 2 MG/ML VIAL SLOW IVP PRN ×3 (12:02→23:01)
[2021-10-03] MEDS ORDERED: HumaLOG 300 UNITS/3 ML VIAL SC SCH (12:15)
[2021-10-03] MEDS: diphenhydrAMINE 50 MG/ML VIAL IVP PRN ×2 (14:32→23:01)
[2021-10-03] MEDS: HumaLOG 300 UNITS/3 ML VIAL SC SCH ×3 (17:15→22:28)
[2021-10-03] MEDS: Sevelamer Carbonate 800 MG TAB PO SCH ×2 (17:25→21:35)
[2021-10-03] MEDS: Insulin Glargine 30 UNITS/0.3 ML VIAL SC SCH (21:28)
[2021-10-03] MEDS: Pregabalin 75 MG CAP PO SCH (21:34)
[2021-10-04] MEDS: cloNIDine 0.1 MG TAB PO PRN (03:14)
[2021-10-04] MEDS ORDERED: Morphine 2 MG/ML VIAL SLOW IVP SCH (03:30)
[2021-10-04 05:15] LABS: #Eosinphils 0.1 thou/uL (0.0-0.7); #Lymphocytes 2.2 thou/uL (1.20-3.40); #Monocytes 0.6 thou/uL (0.11-0.59); #Neutrophils 2.8 thou/uL (1.40-6.50); %Basophils 0.8 % (0.0-1.0); %Eosinophils 2.3 % (0.0-10.0); %Lymphocytes 37.8 % (21.0-51.0); %Monocytes 10.8 % (0.0-10.0); %Neutrophils 48.4 % (42.0-75.0); Hemoglobin 8.7 g/dL (12.0-16.0); Mean Corpuscular HGB CONC 32.7 g/dL (32.0-36.0); Mean Corpuscular Hemoglobin 32.7 pg (27.0-31.0); Mean Platelet Volume 13.8 fL (7.4-10.4); Platelet Count 96 thou/uL (130-400); RBC Distribution Width 15.6 % (11.5-14.5); Red Blood Cell (RBC) Count 2.67 mill/uL (4.20-5.40); White Blood Cell (WBC) Count 5.7 thou/uL (4.8-10.8)
[2021-10-04 05:42] LABS: Anion Gap 21 mmol/L (10-20); BUN (Urea Nitrogen) 50 mg/dL (7.0-18.7); Calc. Creatinine Clearance 17 mL/min (70-130); Calcium 7.7 mg/dL (7.8-10.44); Carbon Dioxide 26 mmol/L (22-29); Chloride 96 mmol/L (98-107); Glucose 205 mg/dL (70-105); Magnesium 2.3 mg/dL (1.6-2.6); Potassium 4.5 mmol/L (3.5-5.1); Sodium 138 mmol/L (136-145)
[2021-10-04] MEDS: Sevelamer Carbonate 800 MG TAB PO SCH (08:06)
[2021-10-04] MEDS: Pregabalin 75 MG CAP PO SCH (08:07)
[2021-10-04] MEDS: diphenhydrAMINE 50 MG/ML VIAL IVP PRN (08:08)
[2021-10-04] MEDS: Insulin Glargine 30 UNITS/0.3 ML VIAL SC SCH (08:11)
[2021-10-04] MEDS: Heparin 5,000 UNITS/ML VIAL SC SCH (08:12)
[2021-10-04] MEDS: HumaLOG 300 UNITS/3 ML VIAL SC SCH (08:13)
[2021-10-04] MEDS ORDERED: Morphine 2 MG/ML VIAL SLOW IVP PRN (08:18)
[2021-10-04] MEDS ORDERED: diphenhydrAMINE 50 MG/ML VIAL IVP SCH (08:30)
[2021-10-04] MEDS ORDERED: Insulin Glargine 30 UNITS/0.3 ML VIAL SC SCH ×2 (09:00)
[2021-10-04 13:29] VITALS: BP 127/70; TEMP 97.7
== END 2021-10-04 18:30 | disposition home or self-care (01) ==
LOC: ERS 20:06 → ERHOLD 23:13 → 2SW 10-03 08:00
PROVIDERS: ADMIT Internal Medicine; ATTEND Internal Medicine
DX: E87.5 Hyperkalemia (principal); E87.70 Fluid overload, unspecified; I12.0 Hypertensive chronic kidney disease with stage 5 chronic kidney disease or end stage renal disease; E10.22 Type 1 diabetes mellitus with diabetic chronic kidney disease; N18.6 End stage renal disease; D63.1 Anemia in chronic kidney disease; E10.42 Type 1 diabetes mellitus with diabetic polyneuropathy; E10.10 Type 1 diabetes mellitus with ketoacidosis without coma; Z79.899 Other long term (current) drug therapy; Z88.5 Allergy status to narcotic agent; Z88.6 Allergy status to analgesic agent; Z88.8 Allergy status to other drugs, medicaments and biological substances; Z99.2 Dependence on renal dialysis; Z20.822 Contact with and (suspected) exposure to COVID-19
CPT/HCPCS: 36415; 36416; 71045; 80048; 80053; 83735; 83880; 84484; 85025; 86704; 87340; 93005; 96372; 96374; 96375; 96376; G0378; J0360; J1200; J1644; J1815; J2270; Q0162; U0003; U0005

== ENCOUNTER 2023-10-11 22:42 | Inpatient (IN) | payer OTHER ==
[2023-10-11] MEDS ORDERED: Glucagon 1 MG/ML KIT IM PRN (23:41)
[2023-10-11] MEDS ORDERED: Ipratropium/Albuterol 3 ML NEB NEB PRN (23:48)
[2023-10-11] MEDS ORDERED: Insulin Lispro 100 UNIT/ML 10 ML VIAL SC PRN (23:59)
[2023-10-12] MEDS: Morphine 2 MG/ML VIAL SLOW IVP SCH ×2 (02:08→11:24)
[2023-10-12] MEDS: Sodium Bicarb 50 mEq/50 ML VIAL IVP SCH (02:09)
[2023-10-12] MEDS: Insulin Regular, Human 100 UNIT/ML 10 ML VIAL IVP SCH (02:09)
[2023-10-12] MEDS: diphenhydrAMINE 50 MG/ML VIAL IVP SCH ×2 (03:09→11:24)
[2023-10-12 03:24] LABS: Hemoglobin 9.3 g/dL (12.0-16.0); Mean Corpuscular Hemoglobin 26.6 pg (27.0-31.0); Mean Corpuscular Volume 85.7 fL (78.0-98.0); Platelet Count 78 10x3/uL (130-400)
[2023-10-12] MEDS: niCARdipine 25 MG in Sodium Chloride 0.9% 250 ML 250 ML IVPB SCH (03:37)
[2023-10-12 03:38] LABS: Troponin I 0.017 ng/mL (< 0.028)
[2023-10-12 03:45] LABS: Anisocytosis SLIGHT = 6-15 cells HPF (0-5); Band 1 % (5-11); Eosinophils 4 % (0-10); Hypochromia SLIGHT = 6-15 cells HPF (0-5); Large Platelets 12.9 % (0-5); Lymphocytes 20 % (21-51); Monocytes 17 % (0-10); Neutrophil 58 % (42-75); Platelet Adequacy Comment Platelets Decreased; Polychromasia SLIGHT = 2-3 cells HPF (0-2)
[2023-10-12 04:11] VITALS: BMI 24.3
[2023-10-12 04:11] LABS: ALT (SGPT) 22 U/L (8-55); AST (SGOT) 34 U/L (5-34); Albumin 3.2 g/dL (3.5-5.0); Alkaline Phosphatase 115 U/L (40-110); Anion Gap 22 mmol/L (10-20); BUN (Urea Nitrogen) 49 mg/dL (7.0-18.7); Bilirubin, Total 0.4 mg/dL (0.2-1.2); Calc. Creatinine Clearance 0 mL/min (70-130); Calcium 8.7 mg/dL (7.8-10.44); Carbon Dioxide 23 mmol/L (22-29); Chloride 101 mmol/L (98-107); Estimated GFR 8; Globulin 3.4 g/dL (2.4-3.5); Glucose 285 mg/dL (70-105); Potassium 4.5 mmol/L (3.5-5.1); Protein, Total 6.6 g/dL (6.0-8.3); Sodium 141 mmol/L (136-145)
[2023-10-12 06:55] LABS: Troponin I 0.019 ng/mL (< 0.028)
[2023-10-12] MEDS: Polyethylene Glycol 3350 17 GM Packet PO SCH (08:42)
[2023-10-12] MEDS: Pregabalin 75 MG CAP PO SCH (08:42)
[2023-10-12] MEDS: Sevelamer Carbonate 800 MG TAB PO SCH (08:43)
[2023-10-12] MEDS: hydrALAZINE 25 MG TAB PO SCH (08:43)
[2023-10-12] MEDS: Carvedilol 25 MG TAB PO SCH (08:43)
[2023-10-12] MEDS: Doxazosin Mesylate 1 MG TAB PO SCH (08:44)
[2023-10-12] MEDS: cloNIDine 0.2 MG TAB PO SCH (08:44)
[2023-10-12] MEDS: Senokot S 8.6-50 MG TAB PO SCH (08:44)
[2023-10-12] MEDS: Pantoprazole DR 40 MG TAB PO SCH (08:44)
[2023-10-12] MEDS: NIFEdipine XL 60 MG ER.TAB PO SCH (08:44)
[2023-10-12] MEDS: Heparin 5,000 UNITS/ML VIAL SC SCH (08:45)
[2023-10-12] MEDS: Insulin Lispro 100 UNIT/ML 10 ML VIAL SC SCH (08:45)
[2023-10-12] MEDS: Insulin Glargine 30 UNITS/0.3 ML VIAL SC SCH ×2 (08:45→20:29)
[2023-10-12] MEDS ORDERED: NIFEdipine XL 60 MG ER.TAB PO SCH (09:00)
[2023-10-12] MEDS: diphenhydrAMINE 50 MG/ML VIAL IVP PRN (17:51)
[2023-10-12] MEDS: Morphine 2 MG/ML VIAL SLOW IVP PRN (17:52)
[2023-10-12] MEDS: Ondansetron PF 4 MG/2 ML Vial IVP PRN (20:29)
[2023-10-12] MEDS: oxyCODONE 5 MG TAB PO PRN (20:30)
[2023-10-13 05:17] LABS: HBsAg Index 0.26 S/CO (0-0.99); Hep B Core Total Ab NONREACTIVE (NonReactive); Hep B Core Total Index 0.14 S/CO (0-0.79); Hep B Surf Ag NONREACTIVE S/CO (NonReactive)
[2023-10-13 05:18] LABS: HBSAB Concentration Less than 8.00 mIU/mL; Hep B Surf AB NONREACTIVE (NonReactive)
[2023-10-13 06:33] LABS: Hep C IgG Ab NONREACTIVE S/CO (NonReactive); Hep C Index 0.09 S/CO (0-0.79)
[2023-10-13] MEDS: NIFEdipine XL 30 MG ER.TAB PO SCH (12:57)
[2023-10-13] MEDS: hydrALAZINE 20 MG/ML VIAL SLOW IVP PRN (22:03)
[2023-10-14] MEDS: NIFEdipine XL 90 MG ER.TAB PO SCH (08:19)
[2023-10-14] MEDS: Losartan 25 MG TAB PO SCH (12:41)
[2023-10-14] MEDS: Morphine 2 MG/ML VIAL SLOW IVP PRN (17:39)
[2023-10-14] MEDS: diphenhydrAMINE 50 MG/ML VIAL IVP PRN (17:40)
[2023-10-15] MEDS: Dextrose 50% Abboject 50 ML SYRINGE SLOW IVP PRN (00:35)
[2023-10-15 07:50] LABS: #Basophils Less than 0.03 10x3/uL (0.0-0.2); %Basophils 0.4 % (0.0-1.0); %Eosinophils 5.3 % (0.0-10.0); %Lymphocytes 26.1 % (21.0-51.0); %Monocytes 18.8 % (0.0-10.0); Hemoglobin 9.2 g/dL (12.0-16.0); Mean Corpuscular HGB CONC 30.7 g/dL (32.0-36.0); Mean Corpuscular Hemoglobin 26.4 pg (27.0-31.0); Mean Corpuscular Volume 86.2 fL (78.0-98.0); Platelet Count 80 10x3/uL (130-400); RBC Distribution Width 18.7 % (11.5-14.5); Red Blood Cell (RBC) Count 3.48 mill/uL (4.20-5.40)
[2023-10-15 08:30] LABS: Albumin 3.4 g/dL (3.5-5.0); Anion Gap 21 mmol/L (10-20); BUN (Urea Nitrogen) 50 mg/dL (7.0-18.7); BUN/Creatinine Ratio 6.23; Calc. Creatinine Clearance 15 mL/min (70-130); Calcium 8.4 mg/dL (7.8-10.44); Carbon Dioxide 25 mmol/L (22-29); Chloride 96 mmol/L (98-107); Estimated GFR 6; Glucose 372 mg/dL (70-105); Phosphorus 6.1 mg/dL (2.3-4.7); Potassium 7.4 mmol/L (3.5-5.1); Sodium 135 mmol/L (136-145)
[2023-10-15] MEDS: Losartan 25 MG TAB PO SCH ×2 (09:12→20:24)
[2023-10-15] MEDS: Pregabalin 50 MG CAP PO SCH (09:14)
[2023-10-15] MEDS: Labetalol HCl 100 MG/20 ML VIAL SLOW IVP PRN (10:20)
[2023-10-15 11:41] LABS: Actual Bicarbonate (HCO3a) 28.1 mEq/L (22-28); CO2 Tension 51.9 mmHg (35.0-45.0); Calcium, Ionized (arterial) 1.04 mmol/L (1.12-1.30); Carboxyhemoglobin (COHb) 0.7 gm% (0.0-3.0); Hematocrit-ABG 29 % (36.0-47.0); O2 Tension (PaO2), arterial 73.7 mmHg (80.0-100.0); Potassium - ABG Lab 5.65 mmol/L (3.70-5.30); pH, Arterial 7.352 (7.35-7.45)
[2023-10-15 11:42] LABS: ALV-art Gradient 11.155 mmHg (0-20); Puncture Site LRA
[2023-10-15 11:56] LABS: Potassium 6.6 mmol/L (3.5-5.1)
[2023-10-15] MEDS: Pregabalin 25 MG CAP PO SCH (20:23)
[2023-10-15] MEDS: oxyCODONE 5 MG TAB PO PRN (23:43)
[2023-10-16] MEDS: diphenhydrAMINE 25 MG CAP PO SCH (01:24)
[2023-10-16] MEDS ORDERED: cloNIDine 0.2 MG TAB PO SCH (08:56)
[2023-10-16] MEDS: NIFEdipine XL 30 MG ER.TAB PO SCH (09:39)
[2023-10-16] MEDS: cloNIDine 0.1 MG TAB PO SCH (09:39)
[2023-10-16] MEDS: Insulin Lispro 100 UNIT/ML 10 ML VIAL SC SCH (13:59)
[2023-10-16 17:09] LABS: #Basophils Less than 0.03 10x3/uL (0.0-0.2); %Basophils 0.4 % (0.0-1.0); %Eosinophils 8.4 % (0.0-10.0); %Lymphocytes 23.7 % (21.0-51.0); %Monocytes 16.1 % (0.0-10.0); %Neutrophils 51.2 % (42.0-75.0); Hematocrit 31.2 % (36.0-47.0); Hemoglobin 9.6 g/dL (12.0-16.0); Mean Corpuscular HGB CONC 30.8 g/dL (32.0-36.0); Mean Corpuscular Hemoglobin 26.4 pg (27.0-31.0); Mean Corpuscular Volume 85.7 fL (78.0-98.0); Platelet Count 106 10x3/uL (130-400); RBC Distribution Width 18.4 % (11.5-14.5); Red Blood Cell (RBC) Count 3.64 mill/uL (4.20-5.40)
[2023-10-16 17:20] LABS: Albumin 3.2 g/dL (3.5-5.0); Anion Gap 14 mmol/L (10-20); BUN (Urea Nitrogen) 15 mg/dL (7.0-18.7); BUN/Creatinine Ratio 4.18; Calc. Creatinine Clearance 34 mL/min (70-130); Calcium 8.9 mg/dL (7.8-10.44); Carbon Dioxide 30 mmol/L (22-29); Chloride 98 mmol/L (98-107); Estimated GFR 17; Glucose 218 mg/dL (70-105); Phosphorus 3.2 mg/dL (2.3-4.7); Potassium 4.2 mmol/L (3.5-5.1); Sodium 138 mmol/L (136-145)
[2023-10-16 18:15] LABS: Anisocytosis SLIGHT = 6-15 cells HPF (0-5); Hypochromia SLIGHT = 6-15 cells HPF (0-5); Platelet Adequacy Comment Platelets Decreased; Poikilocytosis SLIGHT = 6-15 cells HPF (0-5); Polychromasia SLIGHT = 2-3 cells HPF (0-2)
[2023-10-16] MEDS: cloNIDine 0.3 MG TAB PO SCH (20:15)
[2023-10-16] MEDS: Ibuprofen 200 MG TAB PO PRN (23:51)
[2023-10-17] MEDS: Insulin Lispro 100 UNIT/ML 10 ML VIAL SC PRN (00:14)
[2023-10-17] MEDS ORDERED: hydrALAZINE 20 MG/ML VIAL SLOW IVP SCH (04:45)
[2023-10-17] MEDS: Labetalol HCl 100 MG/20 ML VIAL SLOW IVP SCH (04:57)
[2023-10-17] MEDS ORDERED: Morphine 4 MG/ML VIAL SLOW IVP PRN (05:29)
[2023-10-17 07:57] LABS: #Basophils 0.03 10x3/uL (0.0-0.2); %Basophils 0.6 % (0.0-1.0); %Eosinophils 9.1 % (0.0-10.0); %Lymphocytes 25.2 % (21.0-51.0); %Monocytes 19.5 % (0.0-10.0); %Neutrophils 45.2 % (42.0-75.0); Hematocrit 30.7 % (36.0-47.0); Hemoglobin 9.5 g/dL (12.0-16.0); Mean Corpuscular HGB CONC 30.9 g/dL (32.0-36.0); Mean Corpuscular Hemoglobin 26.2 pg (27.0-31.0); Mean Corpuscular Volume 84.6 fL (78.0-98.0); Platelet Count 92 10x3/uL (130-400); RBC Distribution Width 18.3 % (11.5-14.5); Red Blood Cell (RBC) Count 3.63 mill/uL (4.20-5.40)
[2023-10-17] MEDS: NIFEdipine XL 60 MG ER.TAB PO SCH (08:53)
[2023-10-17] MEDS ORDERED: NIFEdipine XL 90 MG ER.TAB PO SCH (09:00)
[2023-10-18 04:02] LABS: #Basophils Less than 0.03 10x3/uL (0.0-0.2); %Basophils 0.4 % (0.0-1.0); %Eosinophils 10.4 % (0.0-10.0); %Monocytes 16.8 % (0.0-10.0); %Neutrophils 39.2 % (42.0-75.0); Hematocrit 30.5 % (36.0-47.0); Hemoglobin 9.4 g/dL (12.0-16.0); Mean Corpuscular HGB CONC 30.8 g/dL (32.0-36.0); Mean Corpuscular Hemoglobin 26.6 pg (27.0-31.0); Mean Corpuscular Volume 86.2 fL (78.0-98.0); Platelet Count 101 10x3/uL (130-400); RBC Distribution Width 18.4 % (11.5-14.5); Red Blood Cell (RBC) Count 3.54 mill/uL (4.20-5.40)
[2023-10-18] MEDS: Doxazosin 2 MG TAB PO SCH (17:30)
[2023-10-18] MEDS: Morphine 2 MG/ML VIAL SLOW IVP PRN (20:09)
[2023-10-19] MEDS: Labetalol HCl 100 MG/20 ML VIAL SLOW IVP SCH (00:17)
[2023-10-19 06:51] LABS: #Basophils 0.04 10x3/uL (0.0-0.2); %Basophils 0.9 % (0.0-1.0); %Eosinophils 10.7 % (0.0-10.0); %Lymphocytes 34.6 % (21.0-51.0); %Neutrophils 36.6 % (42.0-75.0); Hematocrit 32.1 % (36.0-47.0); Hemoglobin 9.8 g/dL (12.0-16.0); Mean Corpuscular HGB CONC 30.5 g/dL (32.0-36.0); Mean Corpuscular Hemoglobin 25.9 pg (27.0-31.0); Mean Corpuscular Volume 84.7 fL (78.0-98.0); Platelet Count 109 10x3/uL (130-400); RBC Distribution Width 18.1 % (11.5-14.5); Red Blood Cell (RBC) Count 3.79 mill/uL (4.20-5.40)
[2023-10-19] MEDS: Insulin Lispro 100 UNIT/ML 10 ML VIAL SC PRN (07:09)
[2023-10-19] MEDS: Doxazosin 2 MG TAB PO SCH ×2 (09:02→11:24)
[2023-10-19] MEDS: Carvedilol 25 MG TAB PO SCH ×2 (11:24→17:31)
[2023-10-19 11:31] LABS: Potassium 5.7 mmol/L (3.5-5.1)
[2023-10-19] MEDS: LOKELMA 10 GM PACKET PO SCH (13:12)
[2023-10-19] MEDS: diphenhydrAMINE 50 MG/ML VIAL IVP SCH (13:12)
[2023-10-19] MEDS: cloNIDine 0.3 MG TAB PO SCH (15:48)
[2023-10-20 04:56] LABS: Anion Gap 14 mmol/L (10-20); BUN (Urea Nitrogen) 30 mg/dL (7.0-18.7); Calc. Creatinine Clearance 21 mL/min (70-130); Calcium 8.9 mg/dL (7.8-10.44); Carbon Dioxide 30 mmol/L (22-29); Chloride 96 mmol/L (98-107); Estimated GFR 10; Glucose 276 mg/dL (70-105); Potassium 4.8 mmol/L (3.5-5.1); Sodium 135 mmol/L (136-145)
[2023-10-20 05:23] LABS: #Basophils Less than 0.03 10x3/uL (0.0-0.2); %Basophils 0.2 % (0.0-1.0); %Eosinophils 9.6 % (0.0-10.0); %Lymphocytes 27.3 % (21.0-51.0); %Monocytes 16.5 % (0.0-10.0); %Neutrophils 46.2 % (42.0-75.0); Hematocrit 31.2 % (36.0-47.0); Hemoglobin 9.5 g/dL (12.0-16.0); Mean Corpuscular HGB CONC 30.4 g/dL (32.0-36.0); Mean Corpuscular Hemoglobin 26.3 pg (27.0-31.0); Mean Corpuscular Volume 86.4 fL (78.0-98.0); Platelet Count 132 10x3/uL (130-400); Red Blood Cell (RBC) Count 3.61 mill/uL (4.20-5.40)
[2023-10-20] MEDS: Doxazosin Mesylate 4 MG TAB PO SCH (13:50)
[2023-10-21 06:05] LABS: #Basophils 0.03 10x3/uL (0.0-0.2); %Basophils 0.6 % (0.0-1.0); %Eosinophils 10.9 % (0.0-10.0); %Lymphocytes 33.4 % (21.0-51.0); %Monocytes 16.8 % (0.0-10.0); %Neutrophils 37.9 % (42.0-75.0); Hematocrit 32.7 % (36.0-47.0); Mean Corpuscular HGB CONC 30.6 g/dL (32.0-36.0); Mean Corpuscular Volume 85.2 fL (78.0-98.0); Platelet Count 127 10x3/uL (130-400); RBC Distribution Width 17.8 % (11.5-14.5); Red Blood Cell (RBC) Count 3.84 mill/uL (4.20-5.40)
[2023-10-21 17:42] LABS: #Basophils 0.03 10x3/uL (0.0-0.2); %Basophils 0.6 % (0.0-1.0); %Eosinophils 11.2 % (0.0-10.0); %Monocytes 18.3 % (0.0-10.0); %Neutrophils 36.7 % (42.0-75.0); Hematocrit 31.9 % (36.0-47.0); Hemoglobin 9.7 g/dL (12.0-16.0); Mean Corpuscular HGB CONC 30.4 g/dL (32.0-36.0); Mean Corpuscular Hemoglobin 26.2 pg (27.0-31.0); Mean Corpuscular Volume 86.2 fL (78.0-98.0); Platelet Count 151 10x3/uL (130-400)
[2023-10-21 17:57] LABS: ALT (SGPT) 12 U/L (8-55); AST (SGOT) 18 U/L (5-34); Albumin 3.3 g/dL (3.5-5.0); Alkaline Phosphatase 89 U/L (40-110); Anion Gap 14 mmol/L (10-20); BUN (Urea Nitrogen) 39 mg/dL (7.0-18.7); Bilirubin, Total 0.4 mg/dL (0.2-1.2); Calc. Creatinine Clearance 18 mL/min (70-130); Carbon Dioxide 29 mmol/L (22-29); Chloride 98 mmol/L (98-107); Estimated GFR 9; Globulin 3.3 g/dL (2.4-3.5); Glucose 101 mg/dL (70-105); Potassium 5.3 mmol/L (3.5-5.1); Protein, Total 6.6 g/dL (6.0-8.3); Sodium 136 mmol/L (136-145)
[2023-10-22] MEDS: Ondansetron ODT 4 MG TAB PO PRN (02:08)
[2023-10-22 05:01] LABS: #Basophils Less than 0.03 10x3/uL (0.0-0.2); %Basophils 0.3 % (0.0-1.0); %Eosinophils 8.5 % (0.0-10.0); %Lymphocytes 23.3 % (21.0-51.0); %Monocytes 12.4 % (0.0-10.0); %Neutrophils 55.3 % (42.0-75.0); Hematocrit 32.2 % (36.0-47.0); Hemoglobin 9.9 g/dL (12.0-16.0); Mean Corpuscular HGB CONC 30.7 g/dL (32.0-36.0); Mean Corpuscular Hemoglobin 26.5 pg (27.0-31.0); Mean Corpuscular Volume 86.3 fL (78.0-98.0); Platelet Count 135 10x3/uL (130-400); RBC Distribution Width 17.8 % (11.5-14.5); Red Blood Cell (RBC) Count 3.73 mill/uL (4.20-5.40)
[2023-10-22 05:08] LABS: ALT (SGPT) 13 U/L (8-55); AST (SGOT) 18 U/L (5-34); Albumin 3.3 g/dL (3.5-5.0); Alkaline Phosphatase 91 U/L (40-110); Anion Gap 17 mmol/L (10-20); BUN (Urea Nitrogen) 50 mg/dL (7.0-18.7); Bilirubin, Total 0.4 mg/dL (0.2-1.2); Calc. Creatinine Clearance 16 mL/min (70-130); Calcium 8.9 mg/dL (7.8-10.44); Carbon Dioxide 28 mmol/L (22-29); Chloride 97 mmol/L (98-107); Estimated GFR 8; Globulin 3.4 g/dL (2.4-3.5); Glucose 310 mg/dL (70-105); Potassium 6.1 mmol/L (3.5-5.1); Protein, Total 6.7 g/dL (6.0-8.3); Sodium 136 mmol/L (136-145)
[2023-10-22] MEDS ORDERED: Insulin Regular, Human 100 UNIT/ML 10 ML VIAL IVP SCH (05:45)
[2023-10-22] MEDS: Insulin Regular 300 UNITS/3 ML VIAL IVP SCH (05:45)
[2023-10-22] MEDS: diphenhydrAMINE 50 MG/ML VIAL IVP SCH (12:42)
[2023-10-22] MEDS: hydrALAZINE 25 MG TAB PO SCH (17:01)
[2023-10-22] MEDS: LOKELMA 10 GM PACKET PO SCH ×2 (17:02→19:14)
[2023-10-23] MEDS: Insulin Glargine 30 UNITS/0.3 ML VIAL SC SCH (00:57)
[2023-10-23 05:19] LABS: #Basophils Less than 0.03 10x3/uL (0.0-0.2); %Basophils 0.4 % (0.0-1.0); %Eosinophils 11.5 % (0.0-10.0); %Lymphocytes 34.1 % (21.0-51.0); %Monocytes 15.9 % (0.0-10.0); %Neutrophils 38.1 % (42.0-75.0); Hematocrit 31.9 % (36.0-47.0); Hemoglobin 9.8 g/dL (12.0-16.0); Mean Corpuscular HGB CONC 30.7 g/dL (32.0-36.0); Mean Corpuscular Volume 84.6 fL (78.0-98.0); Platelet Count 147 10x3/uL (130-400); RBC Distribution Width 17.7 % (11.5-14.5); Red Blood Cell (RBC) Count 3.77 mill/uL (4.20-5.40)
[2023-10-23 05:30] LABS: Anion Gap 19 mmol/L (10-20); BUN (Urea Nitrogen) 43 mg/dL (7.0-18.7); Calc. Creatinine Clearance 17 mL/min (70-130); Calcium 8.9 mg/dL (7.8-10.44); Carbon Dioxide 30 mmol/L (22-29); Chloride 94 mmol/L (98-107); Estimated GFR 8; Glucose 264 mg/dL (70-105); Potassium 5.7 mmol/L (3.5-5.1); Sodium 137 mmol/L (136-145)
[2023-10-23] MEDS: LOKELMA 10 GM PACKET PO SCH (10:53)
[2023-10-23] MEDS: diphenhydrAMINE 50 MG/ML VIAL IVP SCH (13:16)
[2023-10-24 05:44] LABS: ALT (SGPT) 12 U/L (8-55); AST (SGOT) 18 U/L (5-34); Albumin 3.3 g/dL (3.5-5.0); Alkaline Phosphatase 85 U/L (40-110); Anion Gap 15 mmol/L (10-20); BUN (Urea Nitrogen) 26 mg/dL (7.0-18.7); Bilirubin, Total 0.4 mg/dL (0.2-1.2); Calc. Creatinine Clearance 22 mL/min (70-130); Calcium 9.1 mg/dL (7.8-10.44); Carbon Dioxide 31 mmol/L (22-29); Chloride 98 mmol/L (98-107); Estimated GFR 11; Globulin 3.2 g/dL (2.4-3.5); Glucose 120 mg/dL (70-105); Protein, Total 6.5 g/dL (6.0-8.3); Sodium 140 mmol/L (136-145)
[2023-10-24 06:10] LABS: RBC Distribution Width 17.4 % (11.5-14.5)
[2023-10-24 06:42] LABS: #Basophils 0.03 10x3/uL (0.0-0.2); %Basophils 0.7 % (0.0-1.0); %Eosinophils 12.2 % (0.0-10.0); %Lymphocytes 32.7 % (21.0-51.0); %Monocytes 18.2 % (0.0-10.0); Hematocrit 32.7 % (36.0-47.0); Hemoglobin 10.1 g/dL (12.0-16.0); Mean Corpuscular HGB CONC 30.9 g/dL (32.0-36.0); Mean Corpuscular Hemoglobin 26.4 pg (27.0-31.0); Mean Corpuscular Volume 85.6 fL (78.0-98.0); Platelet Count 174 10x3/uL (130-400); Red Blood Cell (RBC) Count 3.82 mill/uL (4.20-5.40)
[2023-10-24] MEDS ORDERED: Iopamidol 100 ML FS ONE ×2 (11:42→15:31)
[2023-10-24] MEDS ORDERED: Sodium Bicarbonate 2.5 MEQ/5 ML SDV ONE (11:42)
[2023-10-24] MEDS ORDERED: Lidocaine 1% w/Epinephrine 1:100K 20 ML VIAL ONE (13:09)
[2023-10-24] MEDS ORDERED: Sterile Water 10 ML ONE (13:27)
[2023-10-24] MEDS ORDERED: fentaNYL 50 mcg/mL 1 mL Vial ONE ×2 (14:32→14:52)
[2023-10-24] MEDS ORDERED: diphenhydrAMINE 50 MG/ML VIAL ONE (14:59)
[2023-10-24] MEDS: Labetalol HCl 100 MG TAB PO SCH (16:54)
[2023-10-25 04:47] LABS: #Basophils Less than 0.03 10x3/uL (0.0-0.2); %Basophils 0.5 % (0.0-1.0); %Eosinophils 11.6 % (0.0-10.0); %Lymphocytes 26.8 % (21.0-51.0); %Monocytes 15.7 % (0.0-10.0); %Neutrophils 45.1 % (42.0-75.0); Hematocrit 32.3 % (36.0-47.0); Hemoglobin 9.9 g/dL (12.0-16.0); Mean Corpuscular HGB CONC 30.7 g/dL (32.0-36.0); Mean Corpuscular Hemoglobin 26.2 pg (27.0-31.0); Mean Corpuscular Volume 85.4 fL (78.0-98.0); Platelet Count 174 10x3/uL (130-400); RBC Distribution Width 17.5 % (11.5-14.5); Red Blood Cell (RBC) Count 3.78 mill/uL (4.20-5.40)
[2023-10-25 12:39] LABS: ALT (SGPT) 13 U/L (8-55); AST (SGOT) 20 U/L (5-34); Albumin 3.5 g/dL (3.5-5.0); Alkaline Phosphatase 92 U/L (40-110); Anion Gap 13 mmol/L (10-20); BUN (Urea Nitrogen) 15 mg/dL (7.0-18.7); Bilirubin, Total 0.4 mg/dL (0.2-1.2); Calc. Creatinine Clearance 35 mL/min (70-130); Calcium 9.1 mg/dL (7.8-10.44); Carbon Dioxide 29 mmol/L (22-29); Chloride 103 mmol/L (98-107); Estimated GFR 20; Globulin 3.3 g/dL (2.4-3.5); Glucose 101 mg/dL (70-105); Potassium 3.3 mmol/L (3.5-5.1); Protein, Total 6.8 g/dL (6.0-8.3); Sodium 142 mmol/L (136-145)
[2023-10-25 13:32] VITALS: BMI 31.1
[2023-10-26 06:54] LABS: Hematocrit 31.1 % (36.0-47.0); Hemoglobin 9.7 g/dL (12.0-16.0); Mean Corpuscular HGB CONC 31.2 g/dL (32.0-36.0); Mean Corpuscular Hemoglobin 26.6 pg (27.0-31.0); Mean Corpuscular Volume 85.2 fL (78.0-98.0); Platelet Count 131 10x3/uL (130-400); RBC Distribution Width 17.2 % (11.5-14.5); Red Blood Cell (RBC) Count 3.65 mill/uL (4.20-5.40)
[2023-10-26 07:26] LABS: ALT (SGPT) 13 U/L (8-55); AST (SGOT) 19 U/L (5-34); Albumin 3.2 g/dL (3.5-5.0); Alkaline Phosphatase 85 U/L (40-110); Anion Gap 17 mmol/L (10-20); BUN (Urea Nitrogen) 28 mg/dL (7.0-18.7); Bilirubin, Total 0.4 mg/dL (0.2-1.2); Calc. Creatinine Clearance 17 mL/min (70-130); Carbon Dioxide 26 mmol/L (22-29); Chloride 96 mmol/L (98-107); Estimated GFR 8; Globulin 3.2 g/dL (2.4-3.5); Glucose 279 mg/dL (70-105); Potassium 4.3 mmol/L (3.5-5.1); Protein, Total 6.4 g/dL (6.0-8.3); Sodium 135 mmol/L (136-145)
[2023-10-26 07:39] LABS: #Basophils Less than 0.03 10x3/uL (0.0-0.2); %Basophils 0.4 % (0.0-1.0); %Eosinophils 12.1 % (0.0-10.0); %Lymphocytes 27.7 % (21.0-51.0); %Monocytes 15.4 % (0.0-10.0); %Neutrophils 44.4 % (42.0-75.0)
[2023-10-26] MEDS ORDERED: Labetalol HCl 100 MG TAB PO SCH ×2 (09:06→09:15)
[2023-10-26] MEDS: Labetalol HCl 100 MG TAB PO SCH ×2 (12:45→14:36)
[2023-10-27 05:23] LABS: #Basophils 0.03 10x3/uL (0.0-0.2); %Basophils 0.5 % (0.0-1.0); %Eosinophils 11.2 % (0.0-10.0); %Monocytes 16.9 % (0.0-10.0); %Neutrophils 48.2 % (42.0-75.0); Hemoglobin 9.3 g/dL (12.0-16.0); Mean Corpuscular Hemoglobin 26.3 pg (27.0-31.0); Mean Corpuscular Volume 84.7 fL (78.0-98.0); Platelet Count 140 10x3/uL (130-400); RBC Distribution Width 17.1 % (11.5-14.5); Red Blood Cell (RBC) Count 3.54 mill/uL (4.20-5.40)
[2023-10-27 05:31] LABS: Anion Gap 17 mmol/L (10-20); BUN (Urea Nitrogen) 45 mg/dL (7.0-18.7); Calc. Creatinine Clearance 13 mL/min (70-130); Calcium 8.9 mg/dL (7.8-10.44); Carbon Dioxide 27 mmol/L (22-29); Chloride 97 mmol/L (98-107); Estimated GFR 6; Glucose 142 mg/dL (70-105); Potassium 4.8 mmol/L (3.5-5.1); Sodium 136 mmol/L (136-145)
[2023-10-27] MEDS: diphenhydrAMINE 25 MG CAP PO SCH (09:29)
[2023-10-27] MEDS: Labetalol HCl 100 MG TAB PO SCH (14:11)
[2023-10-28 04:26] LABS: #Basophils 0.03 10x3/uL (0.0-0.2); %Basophils 0.7 % (0.0-1.0); %Eosinophils 15.1 % (0.0-10.0); %Lymphocytes 21.1 % (21.0-51.0); %Monocytes 16.7 % (0.0-10.0); %Neutrophils 46.2 % (42.0-75.0); Hematocrit 30.4 % (36.0-47.0); Hemoglobin 9.5 g/dL (12.0-16.0); Mean Corpuscular HGB CONC 31.3 g/dL (32.0-36.0); Mean Corpuscular Hemoglobin 26.4 pg (27.0-31.0); Mean Corpuscular Volume 84.4 fL (78.0-98.0); Platelet Count 137 10x3/uL (130-400); RBC Distribution Width 17.2 % (11.5-14.5)
[2023-10-28 05:00] LABS: Anion Gap 14 mmol/L (10-20); BUN (Urea Nitrogen) 21 mg/dL (7.0-18.7); Calc. Creatinine Clearance 20 mL/min (70-130); Carbon Dioxide 29 mmol/L (22-29); Chloride 97 mmol/L (98-107); Estimated GFR 10; Glucose 211 mg/dL (70-105); Potassium 4.1 mmol/L (3.5-5.1); Sodium 136 mmol/L (136-145)
[2023-10-28] MEDS ORDERED: HumaLOG 300 UNITS/3 ML VIAL SC PRN ×2 (12:12)
[2023-10-29] MEDS: Insulin Lispro 100 UNIT/ML 10 ML VIAL SC PRN (01:08)
[2023-10-29 05:16] LABS: #Basophils Less than 0.03 10x3/uL (0.0-0.2); %Basophils 0.4 % (0.0-1.0); %Eosinophils 13.5 % (0.0-10.0); %Lymphocytes 35.1 % (21.0-51.0); %Monocytes 17.4 % (0.0-10.0); %Neutrophils 33.4 % (42.0-75.0); Hematocrit 29.2 % (36.0-47.0); Hemoglobin 9.1 g/dL (12.0-16.0); Mean Corpuscular HGB CONC 31.2 g/dL (32.0-36.0); Mean Corpuscular Hemoglobin 26.5 pg (27.0-31.0); Mean Corpuscular Volume 84.9 fL (78.0-98.0); Platelet Count 121 10x3/uL (130-400); RBC Distribution Width 17.1 % (11.5-14.5); Red Blood Cell (RBC) Count 3.44 mill/uL (4.20-5.40)
[2023-10-29 05:28] LABS: Anion Gap 18 mmol/L (10-20); BUN (Urea Nitrogen) 36 mg/dL (7.0-18.7); Calc. Creatinine Clearance 14 mL/min (70-130); Carbon Dioxide 28 mmol/L (22-29); Chloride 100 mmol/L (98-107); Estimated GFR 7; Glucose 109 mg/dL (70-105); Potassium 4.5 mmol/L (3.5-5.1); Sodium 141 mmol/L (136-145)
[2023-10-29] MEDS: Morphine 2 MG/ML VIAL SLOW IVP PRN (09:14)
[2023-10-29] MEDS ORDERED: cloNIDine 0.1 MG TAB PO PRN (19:22)
[2023-10-29] MEDS: Morphine 4 MG/ML VIAL SLOW IVP PRN (21:29)
[2023-10-30] MEDS: Dextrose 5% in Water 1,000 ML IV PRN (04:01)
[2023-10-30 07:00] LABS: Anion Gap 17 mmol/L (10-20); BUN (Urea Nitrogen) 54 mg/dL (7.0-18.7); Calc. Creatinine Clearance 11 mL/min (70-130); Calcium 9.2 mg/dL (7.8-10.44); Carbon Dioxide 31 mmol/L (22-29); Chloride 96 mmol/L (98-107); Estimated GFR 5; Glucose 68 mg/dL (70-105); Potassium 4.9 mmol/L (3.5-5.1); Sodium 139 mmol/L (136-145)
[2023-10-30] MEDS ORDERED: diphenhydrAMINE 25 MG CAP PO SCH (08:30)
[2023-10-30] MEDS: diphenhydrAMINE 50 MG/ML VIAL IVP SCH (10:00)
[2023-10-30] MEDS: Morphine 2 MG/ML VIAL SLOW IVP PRN ×2 (10:00→22:12)
[2023-10-31] MEDS: Insulin Lispro 100 UNIT/ML 10 ML VIAL SC PRN (04:18)
[2023-10-31 08:05] LABS: Anion Gap 15 mmol/L (10-20); BUN (Urea Nitrogen) 24 mg/dL (7.0-18.7); Calc. Creatinine Clearance 18 mL/min (70-130); Calcium 9.4 mg/dL (7.8-10.44); Carbon Dioxide 32 mmol/L (22-29); Chloride 95 mmol/L (98-107); Estimated GFR 8; Glucose 115 mg/dL (70-105); Potassium 4.4 mmol/L (3.5-5.1); Sodium 138 mmol/L (136-145)
[2023-10-31 08:19] LABS: #Basophils 0.03 10x3/uL (0.0-0.2); %Basophils 0.8 % (0.0-1.0); %Eosinophils 20.2 % (0.0-10.0); %Monocytes 14.1 % (0.0-10.0); %Neutrophils 28.6 % (42.0-75.0); Hematocrit 30.7 % (36.0-47.0); Hemoglobin 9.4 g/dL (12.0-16.0); Mean Corpuscular HGB CONC 30.6 g/dL (32.0-36.0); Mean Corpuscular Hemoglobin 25.3 pg (27.0-31.0); Mean Corpuscular Volume 82.5 fL (78.0-98.0); Platelet Count 117 10x3/uL (130-400); RBC Distribution Width 16.8 % (11.5-14.5); Red Blood Cell (RBC) Count 3.72 mill/uL (4.20-5.40)
[2023-10-31] MEDS: Losartan 25 MG TAB PO SCH (14:43)
[2023-10-31] MEDS: Doxazosin 2 MG TAB PO SCH (14:47)
[2023-11-01 05:07] LABS: #Basophils 0.03 10x3/uL (0.0-0.2); %Basophils 0.6 % (0.0-1.0); %Eosinophils 14.6 % (0.0-10.0); %Lymphocytes 36.2 % (21.0-51.0); %Neutrophils 34.4 % (42.0-75.0); Hematocrit 29.6 % (36.0-47.0); Hemoglobin 9.1 g/dL (12.0-16.0); Mean Corpuscular HGB CONC 30.7 g/dL (32.0-36.0); Mean Corpuscular Volume 84.6 fL (78.0-98.0); Platelet Count 126 10x3/uL (130-400); RBC Distribution Width 16.8 % (11.5-14.5)
[2023-11-01 05:08] LABS: Anion Gap 16 mmol/L (10-20); BUN (Urea Nitrogen) 40 mg/dL (7.0-18.7); Calc. Creatinine Clearance 13 mL/min (70-130); Calcium 9.4 mg/dL (7.8-10.44); Carbon Dioxide 29 mmol/L (22-29); Chloride 94 mmol/L (98-107); Estimated GFR 6; Glucose 246 mg/dL (70-105); Potassium 4.8 mmol/L (3.5-5.1); Sodium 134 mmol/L (136-145)
[2023-11-01] MEDS: Doxazosin 2 MG TAB PO SCH (08:39)
[2023-11-01] MEDS: Losartan 25 MG TAB PO SCH (08:40)
[2023-11-01] MEDS: Morphine 2 MG/ML VIAL SLOW IVP PRN (17:11)
[2023-11-02 05:51] LABS: #Basophils 0.03 10x3/uL (0.0-0.2); %Basophils 0.7 % (0.0-1.0); %Eosinophils 16.5 % (0.0-10.0); %Lymphocytes 39.4 % (21.0-51.0); %Monocytes 15.8 % (0.0-10.0); %Neutrophils 27.6 % (42.0-75.0); Hemoglobin 9.3 g/dL (12.0-16.0); Mean Corpuscular Volume 83.8 fL (78.0-98.0); Platelet Count 112 10x3/uL (130-400); RBC Distribution Width 16.6 % (11.5-14.5); Red Blood Cell (RBC) Count 3.58 mill/uL (4.20-5.40)
[2023-11-02 05:53] LABS: Anion Gap 14 mmol/L (10-20); BUN (Urea Nitrogen) 22 mg/dL (7.0-18.7); Calc. Creatinine Clearance 18 mL/min (70-130); Calcium 9.1 mg/dL (7.8-10.44); Carbon Dioxide 30 mmol/L (22-29); Chloride 98 mmol/L (98-107); Estimated GFR 9; Glucose 156 mg/dL (70-105); Potassium 4.4 mmol/L (3.5-5.1); Sodium 138 mmol/L (136-145)
[2023-11-02] MEDS: Doxazosin 2 MG TAB PO SCH (14:44)
[2023-11-03] MEDS: Morphine 4 MG/ML VIAL SLOW IVP PRN (04:28)
[2023-11-03 05:20] LABS: #Basophils 0.03 10x3/uL (0.0-0.2); %Basophils 0.6 % (0.0-1.0); %Eosinophils 13.4 % (0.0-10.0); %Lymphocytes 27.9 % (21.0-51.0); %Monocytes 13.4 % (0.0-10.0); %Neutrophils 44.3 % (42.0-75.0); Hemoglobin 9.6 g/dL (12.0-16.0); Mean Corpuscular Hemoglobin 25.6 pg (27.0-31.0); Mean Corpuscular Volume 82.7 fL (78.0-98.0); Platelet Count 103 10x3/uL (130-400); Red Blood Cell (RBC) Count 3.75 mill/uL (4.20-5.40)
[2023-11-03 05:48] LABS: Phosphorus 5.2 mg/dL (2.3-4.7)
[2023-11-03 05:50] LABS: Anion Gap 21 mmol/L (10-20); BUN (Urea Nitrogen) 39 mg/dL (7.0-18.7); Calc. Creatinine Clearance 14 mL/min (70-130); Calcium 9.1 mg/dL (7.8-10.44); Carbon Dioxide 25 mmol/L (22-29); Chloride 94 mmol/L (98-107); Estimated GFR 6; Glucose 344 mg/dL (70-105); Potassium 4.8 mmol/L (3.5-5.1); Sodium 135 mmol/L (136-145)
[2023-11-03] MEDS: Doxazosin Mesylate 4 MG TAB PO SCH (08:26)
[2023-11-03] MEDS: diphenhydrAMINE 25 MG CAP PO SCH (09:37)
[2023-11-03] MEDS: EPOETIN ALFA-EPBX (ESRD) 10,000 UNITS/ML VIAL SC SCH (16:18)
[2023-11-05 17:17] LABS: Anion Gap 14 mmol/L (10-20); BUN (Urea Nitrogen) 23 mg/dL (7.0-18.7); Calc. Creatinine Clearance 23 mL/min (70-130); Calcium 8.9 mg/dL (7.8-10.44); Carbon Dioxide 30 mmol/L (22-29); Chloride 97 mmol/L (98-107); Estimated GFR 12; Glucose 301 mg/dL (70-105); Potassium 4.3 mmol/L (3.5-5.1); Sodium 137 mmol/L (136-145)
[2023-11-06 07:57] LABS: #Basophils Less than 0.03 10x3/uL (0.0-0.2); %Basophils 0.3 % (0.0-1.0); %Eosinophils 12.5 % (0.0-10.0); %Lymphocytes 13.5 % (21.0-51.0); %Monocytes 19.7 % (0.0-10.0); %Neutrophils 53.7 % (42.0-75.0); Hematocrit 28.6 % (36.0-47.0); Hemoglobin 8.7 g/dL (12.0-16.0); Mean Corpuscular HGB CONC 30.4 g/dL (32.0-36.0); Mean Corpuscular Volume 85.6 fL (78.0-98.0); Platelet Count 98 10x3/uL (130-400); RBC Distribution Width 17.1 % (11.5-14.5); Red Blood Cell (RBC) Count 3.34 mill/uL (4.20-5.40)
[2023-11-06 08:19] LABS: Anion Gap 17 mmol/L (10-20); BUN (Urea Nitrogen) 36 mg/dL (7.0-18.7); Calc. Creatinine Clearance 17 mL/min (70-130); Calcium 9.3 mg/dL (7.8-10.44); Carbon Dioxide 29 mmol/L (22-29); Chloride 96 mmol/L (98-107); Estimated GFR 8; Glucose 175 mg/dL (70-105); Potassium 4.7 mmol/L (3.5-5.1); Sodium 137 mmol/L (136-145)
[2023-11-06 16:01] VITALS: BP 182/93
[2023-11-06 16:28] VITALS: TEMP 98.5
== END 2023-11-06 18:12 | disposition home or self-care (01) | DRG 304 ==
LOC: CCU 23:36 → MSONC 10-12 13:11
PROVIDERS: ADMIT Internal Medicine; ATTEND Internal Medicine
PROC: 06HY33Z Insertion of Infusion Device into Lower Vein, Percutaneous Approach (ICD-10-PCS; principal; 2023-10-12)
PROC: 4A033R1 Measurement of Arterial Saturation, Peripheral, Percutaneous Approach (ICD-10-PCS; 2023-10-15)
PROC: 5A1D70Z Performance of Urinary Filtration, Intermittent, Less than 6 Hours Per Day (ICD-10-PCS; 2023-10-22)
DX: I16.1 Hypertensive emergency (principal); N18.6 End stage renal disease; I87.1 Compression of vein; J45.909 Unspecified asthma, uncomplicated; E10.65 Type 1 diabetes mellitus with hyperglycemia; D63.1 Anemia in chronic kidney disease; D69.6 Thrombocytopenia, unspecified; G47.33 Obstructive sleep apnea (adult) (pediatric); I12.0 Hypertensive chronic kidney disease with stage 5 chronic kidney disease or end stage renal disease; E87.5 Hyperkalemia; E10.42 Type 1 diabetes mellitus with diabetic polyneuropathy; G89.4 Chronic pain syndrome; E10.22 Type 1 diabetes mellitus with diabetic chronic kidney disease; Z99.2 Dependence on renal dialysis; Z88.5 Allergy status to narcotic agent; Z88.8 Allergy status to other drugs, medicaments and biological substances; Z79.4 Long term (current) use of insulin; Z79.899 Other long term (current) drug therapy; Z90.89 Acquired absence of other organs; Z98.890 Other specified postprocedural states
CPT/HCPCS: 36415; 36416; 36600; 36901; 36902; 74176; 80048; 80053; 80069; 82805; 83690; 84100; 84132; 84484; 84702; 85025; 86704; 86706; 86803; 87340; 90935; 93931; C1713; C1725; C1769; C1887; C1894; G0257; J0360; J1200; J1644; J1815; J2270; J2272; J2405; J3010; J7050; J7070; J7999; Q0162; Q5105; Q9967

== ENCOUNTER 2024-02-01 17:40 | Inpatient (IN) | payer MEDICAID, OTHER ==
[2024-02-01 19:14] LABS: Actual Bicarbonate (HCO3v) 20.9 mEq/L (22-28); Analyzer IN Cardio ER; Base Excess -4.8 mEq/L (-2.0 to +3.0); Calcium, Ionized (venous) 0.88 mmol/L (1.16-1.32); Chloride (VBG) 95 mmol/L (98-106); Hematocrit-VBG 33 % (36.0-47.0); Hemoglobin (Hb) 11.2 g/dL (11.7-15.5); Sodium 132 mmol/L (133-146); pH (venous) 7.324 (7.32-7.43)
[2024-02-01] MEDS ORDERED: CALCIUM GLUC 1 GM/NS 50 ML IV Bag ONE (19:27)
[2024-02-01] MEDS ORDERED: Insulin Regular, Human 100 UNIT/ML 10 ML VIAL ONE (19:27)
[2024-02-01 19:32] LABS: #Basophils Less than 0.03 10x3/uL (0.0-0.2); %Basophils 0.5 % (0.0-1.0); %Eosinophils 7.5 % (0.0-10.0); %Lymphocytes 20.6 % (21.0-51.0); %Monocytes 12.9 % (0.0-10.0); %Neutrophils 58.3 % (42.0-75.0); Hematocrit 32.3 % (36.0-47.0); Hemoglobin 9.9 g/dL (12.0-16.0); Mean Corpuscular HGB CONC 30.7 g/dL (32.0-36.0); Mean Corpuscular Hemoglobin 28.6 pg (27.0-31.0); Mean Corpuscular Volume 93.4 fL (78.0-98.0); Platelet Count 133 10x3/uL (130-400); RBC Distribution Width 18.7 % (11.5-14.5); Red Blood Cell (RBC) Count 3.46 mill/uL (4.20-5.40)
[2024-02-01] MEDS ORDERED: Morphine 4 MG/ML VIAL ONE (19:49)
[2024-02-01] MEDS ORDERED: Ondansetron PF 4 MG/2 ML Vial ONE (19:49)
[2024-02-01 19:51] LABS: Troponin I 0.023 ng/mL (< 0.028)
[2024-02-01 20:01] LABS: ALT (SGPT) 44 U/L (8-55); AST (SGOT) 128 U/L (5-34); Albumin 3.5 g/dL (3.5-5.0); Alkaline Phosphatase 163 U/L (40-110); Anion Gap 24 mmol/L (10-20); BUN (Urea Nitrogen) 58 mg/dL (7.0-18.7); Bilirubin, Total 0.4 mg/dL (0.2-1.2); Calc. Creatinine Clearance 0 mL/min (70-130); Calcium 7.1 mg/dL (7.8-10.44); Carbon Dioxide 20 mmol/L (22-29); Chloride 95 mmol/L (98-107); Estimated GFR 7; Globulin 3.4 g/dL (2.4-3.5); Glucose 519 mg/dL (70-105); Magnesium 2.5 mg/dL (1.6-2.6); Potassium 6.8 mmol/L (3.5-5.1); Protein, Total 6.9 g/dL (6.0-8.3); Sodium 132 mmol/L (136-145)
[2024-02-01] MEDS ORDERED: diphenhydrAMINE 50 MG/ML VIAL ONE (20:03)
[2024-02-01] MEDS ORDERED: Morphine 2 MG/ML VIAL SLOW IVP PRN (20:50)
[2024-02-01] MEDS ORDERED: Morphine 4 MG/ML VIAL SLOW IVP PRN (20:50)
[2024-02-01] MEDS ORDERED: traMADol HCl 50 MG TAB PO PRN ×2 (21:04)
[2024-02-01] MEDS ORDERED: Promethazine 25 MG TAB PO PRN (21:06)
[2024-02-02 00:41] LABS: HBSAB Concentration Less than 8.00 mIU/mL; HBsAg Index 0.29 S/CO (0-0.99); Hep B Core Total Ab NONREACTIVE (NonReactive); Hep B Core Total Index 0.16 S/CO (0-0.79); Hep B Surf AB NONREACTIVE (NonReactive); Hep B Surf Ag NONREACTIVE S/CO (NonReactive); Hep C IgG Ab NONREACTIVE S/CO (NonReactive)
[2024-02-02] MEDS: Albuterol 2.5 MG (3 mL) NEB ONE (05:10)
[2024-02-02] MEDS: diphenhydrAMINE 50 MG/ML VIAL IVP SCH (05:10)
[2024-02-02] MEDS: LOKELMA 10 GM PACKET PO SCH (05:11)
[2024-02-02] MEDS ORDERED: Dextrose 50% Abboject 50 ML SYRINGE SLOW IVP PRN (05:16)
[2024-02-02] MEDS ORDERED: Dextrose 5% in Water 1,000 ML IV PRN (05:16)
[2024-02-02] MEDS ORDERED: Glucagon 1 MG/ML KIT IM PRN (05:16)
[2024-02-02] MEDS: hydrALAZINE 20 MG/ML VIAL SLOW IVP SCH (05:29)
[2024-02-02] MEDS ORDERED: diphenhydrAMINE 50 MG CAP PO PRN ×2 (05:35→11:39)
[2024-02-02] MEDS ORDERED: Simethicone Chewable 80 MG TAB PO PRN (05:36)
[2024-02-02] MEDS: hydrOXYzine 25 MG TAB PO SCH (06:04)
[2024-02-02] MEDS: Insulin Regular, Human 100 UNIT/ML 10 ML VIAL SC PRN (06:10)
[2024-02-02 08:03] LABS: #Basophils Less than 0.03 10x3/uL (0.0-0.2); %Basophils 0.4 % (0.0-1.0); %Eosinophils 6.9 % (0.0-10.0); %Lymphocytes 13.2 % (21.0-51.0); %Monocytes 13.2 % (0.0-10.0); %Neutrophils 65.9 % (42.0-75.0); Hematocrit 34.7 % (36.0-47.0); Hemoglobin 10.4 g/dL (12.0-16.0); Mean Corpuscular Volume 93.3 fL (78.0-98.0); Platelet Count 105 10x3/uL (130-400); RBC Distribution Width 18.6 % (11.5-14.5); Red Blood Cell (RBC) Count 3.72 mill/uL (4.20-5.40)
[2024-02-02 08:20] LABS: Anion Gap 20 mmol/L (10-20); BUN (Urea Nitrogen) 25 mg/dL (7.0-18.7); Calc. Creatinine Clearance 0 mL/min (70-130); Calcium 8.2 mg/dL (7.8-10.44); Carbon Dioxide 21 mmol/L (22-29); Chloride 99 mmol/L (98-107); Estimated GFR 13; Glucose 309 mg/dL (70-105); Magnesium 2.2 mg/dL (1.6-2.6); Phosphorus 5.3 mg/dL (2.3-4.7); Potassium 4.6 mmol/L (3.5-5.1); Sodium 135 mmol/L (136-145)
[2024-02-02] MEDS: Heparin 5,000 UNITS/ML VIAL SC SCH (08:39)
[2024-02-02] MEDS: NIFEdipine XL 60 MG ER.TAB PO SCH (08:39)
[2024-02-02] MEDS: Labetalol HCl 100 MG TAB PO SCH (08:39)
[2024-02-02] MEDS: cloNIDine 0.3 MG TAB PO SCH (08:40)
[2024-02-02] MEDS: hydrALAZINE 25 MG TAB PO SCH (08:40)
[2024-02-02] MEDS: Losartan 25 MG TAB PO SCH (08:40)
[2024-02-02] MEDS: Doxazosin Mesylate 4 MG TAB PO SCH (08:40)
[2024-02-02] MEDS: Pantoprazole DR 40 MG TAB PO SCH (08:41)
[2024-02-02] MEDS: Pregabalin 75 MG CAP PO SCH (08:41)
[2024-02-02 08:48] LABS: Band 1 % (5-11); Eosinophils 5 % (0-10); Hypochromia SLIGHT = 6-15 cells HPF (0-5); Large Platelets 10.5 % (0-5); Lymphocytes 12 % (21-51); Monocytes 11 % (0-10); Neutrophil 68 % (42-75); Polychromasia SLIGHT = 2-3 cells HPF (0-2); Reactive Lymphocytes 1 % (0-10)
[2024-02-02] MEDS ORDERED: LOKELMA 10 GM PACKET PO SCH (09:00)
[2024-02-02] MEDS ORDERED: Famotidine 20 MG TAB PO SCH (09:00)
[2024-02-02] MEDS: Sevelamer Carbonate 800 MG TAB PO SCH (10:55)
[2024-02-02] MEDS: Insulin Lispro 100 UNIT/ML 10 ML VIAL SC SCH (10:56)
[2024-02-02] MEDS: Insulin Glargine 30 UNITS/0.3 ML VIAL SC SCH ×2 (10:57→21:54)
[2024-02-02] MEDS: Sodium Chloride 0.9% 500 ML IV SCH (11:52)
[2024-02-02] MEDS ORDERED: Doxazosin Mesylate 4 MG TAB PO SCH (21:00)
[2024-02-02] MEDS ORDERED: Losartan 25 MG TAB PO SCH (21:00)
[2024-02-02] MEDS: diphenhydrAMINE 25 MG CAP PO PRN (23:20)
[2024-02-03] MEDS: hydrALAZINE 20 MG/ML VIAL SLOW IVP PRN (00:52)
[2024-02-03] MEDS: hydrALAZINE 20 MG/ML VIAL SLOW IVP SCH ×2 (02:06→04:13)
[2024-02-03] MEDS: Insulin Lispro 100 UNIT/ML 10 ML VIAL SC SCH ×2 (02:12→04:15)
[2024-02-03 04:44] LABS: #Basophils 0.03 10x3/uL (0.0-0.2); %Basophils 0.6 % (0.0-1.0); %Eosinophils 7.3 % (0.0-10.0); %Lymphocytes 21.5 % (21.0-51.0); %Monocytes 16.2 % (0.0-10.0); %Neutrophils 54.2 % (42.0-75.0); Hematocrit 33.2 % (36.0-47.0); Hemoglobin 10.1 g/dL (12.0-16.0); Mean Corpuscular HGB CONC 30.4 g/dL (32.0-36.0); Mean Corpuscular Hemoglobin 28.4 pg (27.0-31.0); Mean Corpuscular Volume 93.3 fL (78.0-98.0); Platelet Count 106 10x3/uL (130-400); RBC Distribution Width 18.2 % (11.5-14.5); Red Blood Cell (RBC) Count 3.56 mill/uL (4.20-5.40)
[2024-02-03 04:57] LABS: Anion Gap 20 mmol/L (10-20); BUN (Urea Nitrogen) 44 mg/dL (7.0-18.7); Calc. Creatinine Clearance 0 mL/min (70-130); Calcium 7.1 mg/dL (7.8-10.44); Carbon Dioxide 22 mmol/L (22-29); Chloride 94 mmol/L (98-107); Estimated GFR 8; Glucose 473 mg/dL (70-105); Potassium 4.9 mmol/L (3.5-5.1); Sodium 131 mmol/L (136-145)
[2024-02-03] MEDS: Labetalol HCl 100 MG/20 ML VIAL SLOW IVP SCH (06:07)
[2024-02-03] MEDS: Insulin Regular, Human 100 UNIT/ML 10 ML VIAL IVP SCH (06:33)
[2024-02-03] MEDS: Naproxen 500 MG TAB PO SCH ×2 (16:19→21:58)
[2024-02-03] MEDS: Losartan 25 MG TAB PO SCH (22:01)
[2024-02-03] MEDS: Doxazosin Mesylate 4 MG TAB PO SCH (22:03)
[2024-02-04] MEDS: diphenhydrAMINE 25 MG CAP PO PRN (03:16)
[2024-02-04 04:38] LABS: Albumin 3.1 g/dL (3.5-5.0); Anion Gap 21 mmol/L (10-20); BUN (Urea Nitrogen) 63 mg/dL (7.0-18.7); BUN/Creatinine Ratio 7.46; Calc. Creatinine Clearance 12 mL/min (70-130); Calcium 7.1 mg/dL (7.8-10.44); Carbon Dioxide 20 mmol/L (22-29); Chloride 99 mmol/L (98-107); Estimated GFR 6; Glucose 187 mg/dL (70-105); Phosphorus 8.2 mg/dL (2.3-4.7); Potassium 5.2 mmol/L (3.5-5.1); Sodium 135 mmol/L (136-145)
[2024-02-04] MEDS: diphenhydrAMINE 50 MG/ML VIAL IVP PRN (10:15)
[2024-02-04] MEDS ORDERED: traMADol HCl 50 MG TAB PO PRN ×2 (11:31→11:32)
[2024-02-04 15:58] VITALS: BP 142/74; TEMP 97.8
[2024-02-05] MEDS ORDERED: FLU (Fluarix Triv) TS24-25(6MOS UP)/PF 45 MCG/0.5 ML Syringe IM ONE (09:00)
[2024-02-05 13:19] LABS: Potassium (VBG) 6.55 mmol/L (3.70-5.30)
== END 2024-02-04 17:10 | disposition home or self-care (01) | DRG 640 ==
LOC: SUATTDRO 17:40 → ERS 17:40 → OBSVTOIN 21:45 → ERHOLD 21:45 → 2SE 02-02 00:50
PROVIDERS: ADMIT Family Medicine; ATTEND Internal Medicine
DX: E87.5 Hyperkalemia (principal); N18.6 End stage renal disease; I12.0 Hypertensive chronic kidney disease with stage 5 chronic kidney disease or end stage renal disease; E10.22 Type 1 diabetes mellitus with diabetic chronic kidney disease; J45.909 Unspecified asthma, uncomplicated; Z79.4 Long term (current) use of insulin; I95.9 Hypotension, unspecified; E83.39 Other disorders of phosphorus metabolism; Z88.8 Allergy status to other drugs, medicaments and biological substances; Z90.89 Acquired absence of other organs; Z98.890 Other specified postprocedural states; Z99.2 Dependence on renal dialysis; Z79.899 Other long term (current) drug therapy
CPT/HCPCS: 36415; 36416; 71045; 80048; 80053; 80069; 82010; 82805; 83605; 83735; 83880; 84100; 84484; 85025; 86704; 86706; 86803; 87340; 90935; 93005; 96374; 96375; 96376; G0257; J0360; J0613; J1200; J1815; J2272; J2405; J7030; J7611